=== PATIENT | female | born 1945 | race Caucasian/White ===

== ENCOUNTER 2017-10-22 12:48 | Inpatient (IN) | payer MEDICARE ==
[2017-10-22] VITALS (8 sets, daily range): BP systolic 158–210; BP diastolic 82–110
[~2017-10-22] VITALS: Ht 167.6 cm; Wt 107.6 kg
--- NOTE | ~2017-10-22 | CON ---
[place], [place] REPORT OF CONSULTATION NAME: [facility]GO [facility]: [id number] UNIT #: [id number] ROOM: 407 DOCTOR: ADRIANNA LAGUNAS MD BIRTHDATE: [birth year] DOS: 10/23/2017 CHIEF COMPLAINT: "Oh, I took a bad fall, now I don't know what I'm going to do." HISTORY OF PRESENT ILLNESS: This is a 71-year-old white female who is being followed on the medical floor for elevated blood pressure as well as atrial fibrillation with rapid ventricular response. She also suffered a right patellar fracture. From a psychiatric standpoint, the patient has been found to be somewhat confused, episodically psychotic. This morning, in fact, she thought it was evening; she stated she was hungry and did not have dinner. When she was evaluated by the physician, she also mentioned she saw rats in her room. This morning as I evaluated her, she was fairly accurate in telling me that she has been here for about 3 days, that she is here because she fractured her right kneecap and is unable to walk and is now worried that she will have to go into a rehab facility, but is uncertain. She did not complain of any visual hallucinations, auditory hallucinations and was fairly well oriented; however, she was rather vague at times I think purposely to hide some memory issues. MENTAL STATUS: She is alert and oriented to person, place, very approximate to time. Mood seems fairly euthymic. Affect appropriate. Speech rate and pattern is within normal limits. There is no hypomania or leo. There are no overt auditory or visual hallucinations. No delusions were voiced. No paranoia was present. She at times processes slowly, but overall her memory this morning for me was fairly intact. DIAGNOSIS: Major depression, recurrent, by history. PLAN: I will go ahead and increase her Exelon from 1.5 mg twice a day to 3 mg twice a day at least bringing it into the therapeutic range. There is a linear response to the dose and improvement, so if you wanted to increase further more benefit might be obtained. I will also increase the Cymbalta from 40 mg a day to 60 mg a day to more adequately treat the depression; it will also aid in pain control given her fractured kneecap. Should you require further intervention, please notify me later. I appreciate the consult. ADRIANNA LAGUNAS MD CM:CONSTR:REPORT OF CONSULTATION 0958 10/23/17 2334 interface
[~2017-10-22 12:48] MED LIST: ALBUTEROL INHALER; AMOXICILLIN500 M2 PO; ATENOLOL25 MG PO; ATIVAN1 MG PO; COUMADIN2.5 M1 PO; COUMADIN2.5 MG PO; ELIQUIS5 M1 PO; FLONASE ALLERG9.9 ML NS; FLUONAZOLE150 M1 PO; HYDROCOD-HOMAT1 EACH PO; K-TAB20 MEQ PO; LASIX40 MG PO; LISINOPRIL/HCTZ1 TA2 PO; LISINOPRIL2.5 MG PO; LOVASTATIN20 MG PO; METOPROLOL TART50 M1 PO; MYCOLOG CREAM 115 GM T; POLYETHYLENE GL1 POW PO; PREMARIN V0.625 MG/G VG; TOPROL XL50 M1 PO; WARFARIN SOD5 MG PO; WARFARIN SODIU2.5 MG PO; XARE20MG PO; ZYRTEC10 MG PO
[2017-10-22] MEDS ORDERED: DULOXETINE HCL40 MG PO (13:00)
[2017-10-22] MEDS ORDERED: XARE20MG PO (13:00)
[2017-10-22] MEDS ORDERED: ATIVAN1 MG PO (13:02)
[2017-10-22] MEDS ORDERED: RIVASTIGMINE T1.5 M1 PO (13:02)
[2017-10-22] MEDS ORDERED: LISINOPRIL20 MG PO (13:03)
[2017-10-22] MEDS ORDERED: TOPROL XL100 MG PO (13:03)
[2017-10-22 14:57] LABS: BASO # 0.1 10*3/uL (0.0-0.1); BASO % 0.6 % (0.0-1.0); EOS % 0.4 % (1.0-4.0); HEMATOCRIT 48.8 % (37.0-47.0); HEMOGLOBIN 16.3 g/dl (12.0-16.0); LYMPH # 2.1 10*3/uL (1.3-4.4); LYMPH % 20.8 % (27.0-41.0); MEAN CELL VOLUME 88.1 fl (81.0-99.0); MEAN CORPUSCULAR HGB 29.4 pg (27.0-31.0); MEAN CORPUSCULAR HGB CONC 33.4 g/dl (33.0-37.0); MEAN PLATELET VOLUME 10.5 fl (9.6-12.3); MONO # 0.6 10*3/uL (0.1-1.0); MONO % 6.2 % (3.0-9.0); NEUT # 7.2 10*3/uL (2.3-7.9); NEUT % 71.8 % (47.0-73.0); PLATELET COUNT AUTOMATED 166 10*3/uL (130-400); RED BLOOD COUNT 5.54 10*6/uL (4.10-5.10)
[2017-10-22 15:11] LABS: ACT PARTIAL THROMBO TIME 32.8 SECONDS (20.8-31.5); INTERNATIONAL NORM RATIO 1.3 (2.0-3.5)
[2017-10-22 15:16] LABS: ALBUMIN 4.2 gm/dl (3.1-4.5); ALKALINE PHOSPHATASE 50 U/L (45-117); BUN 15 mg/dl (7-24); CHLORIDE 103 mmol/L (98-107); CREATININE 0.95 mg/dL (0.55-1.02); POTASSIUM 4.3 mmol/L (3.5-5.1); SGOT/AST 28 IU/L (3-35); SGPT/ALT 35 U/L (12-78); SODIUM 139 mmol/L (136-145); TOTAL PROTEIN 6.6 gm/dL (6.4-8.2)
[2017-10-23] VITALS (11 sets, daily range): BP systolic 122–172; BP diastolic 76–102
[2017-10-23 06:34] LABS: BASO # 0.1 10*3/uL (0.0-0.1); BASO % 0.6 % (0.0-1.0); EOS # 0.1 10*3/uL (0.0-0.4); EOS % 1.4 % (1.0-4.0); HEMATOCRIT 45.1 % (37.0-47.0); LYMPH % 23.5 % (27.0-41.0); MEAN CELL VOLUME 89.5 fl (81.0-99.0); MEAN CORPUSCULAR HGB 29.8 pg (27.0-31.0); MEAN CORPUSCULAR HGB CONC 33.3 g/dl (33.0-37.0); MEAN PLATELET VOLUME 10.7 fl (9.6-12.3); MONO # 0.7 10*3/uL (0.1-1.0); MONO % 7.5 % (3.0-9.0); NEUT # 5.7 10*3/uL (2.3-7.9); NEUT % 66.5 % (47.0-73.0); PLATELET COUNT AUTOMATED 163 10*3/uL (130-400); RED BLOOD COUNT 5.04 10*6/uL (4.10-5.10); RED CELL DISTRI WIDTH 13.2 % (0-14.5); WHITE BLOOD COUNT 8.6 10*3/uL (4.8-10.8)
[2017-10-23 07:07] LABS: ALBUMIN 3.6 gm/dl (3.1-4.5); ALKALINE PHOSPHATASE 45 U/L (45-117); BUN 12 mg/dl (7-24); CHLORIDE 102 mmol/L (98-107); CHOLESTEROL 156 mg/dL (<200); CREATININE 0.92 mg/dL (0.55-1.02); FREE T4 1.39 ng/dl (0.76-1.46); HDL CHOLESTEROL 54 mg/dl (40-60); LDL CHOLESTEROL 86 mg/dL (9-159); PHOSPHOROUS 2.8 mg/dL (2.5-4.9); POTASSIUM 4.1 mmol/L (3.5-5.1); SGOT/AST 28 IU/L (3-35); SGPT/ALT 31 U/L (12-78); SODIUM 139 mmol/L (136-145); TOTAL PROTEIN 5.9 gm/dL (6.4-8.2); TRIGLYCERIDES 78 mg/dl (<150); VLDL CHOLESTEROL 16 mg/dL (6-40)
[2017-10-24] VITALS: BP 150/84
[2017-10-24 04:00] VITALS: BP 160/100
[2017-10-24 08:00] VITALS: BP 153/100
[2017-10-24 12:00] VITALS: BP 156/99
[2017-10-24 16:00] VITALS: BP 145/90
[2017-10-24 20:00] VITALS: BP 123/88
[2017-10-25] VITALS: BP 146/90
[2017-10-25 08:00] VITALS: BP 170/98
[2017-10-25 12:00] VITALS: BP 157/102
[2017-10-25 16:19] VITALS: BP 132/77
[2017-10-25 20:00] VITALS: BP 175/89
[2017-10-26] VITALS: BP 166/96
[2017-10-26 08:00] VITALS: BP 158/98
[2017-10-26 12:00] VITALS: BP 148/100
[2017-10-26 16:00] VITALS: BP 141/95
[2017-10-26 20:00] VITALS: BP 122/80
[2017-10-27] VITALS: BP 140/86
[2017-10-27 08:00] VITALS: BP 149/97
[2017-10-27 10:19] LABS: BASO # 0.1 10*3/uL (0.0-0.1); BASO % 0.7 % (0.0-1.0); EOS # 0.4 10*3/uL (0.0-0.4); EOS % 3.5 % (1.0-4.0); HEMOGLOBIN 16.5 g/dl (12.0-16.0); LYMPH # 2.3 10*3/uL (1.3-4.4); LYMPH % 21.9 % (27.0-41.0); MEAN CELL VOLUME 87.7 fl (81.0-99.0); MEAN CORPUSCULAR HGB 29.5 pg (27.0-31.0); MEAN CORPUSCULAR HGB CONC 33.7 g/dl (33.0-37.0); MEAN PLATELET VOLUME 10.3 fl (9.6-12.3); MONO # 0.9 10*3/uL (0.1-1.0); NEUT % 65.6 % (47.0-73.0); PLATELET COUNT AUTOMATED 183 10*3/uL (130-400); RED BLOOD COUNT 5.59 10*6/uL (4.10-5.10); RED CELL DISTRI WIDTH 12.9 % (0-14.5); WHITE BLOOD COUNT 10.6 10*3/uL (4.8-10.8)
[2017-10-27 12:00] VITALS: BP 116/70
[2017-10-27 16:00] VITALS: BP 115/89
[2017-10-27 20:00] VITALS: BP 123/86
[2017-10-28] VITALS: BP 120/82
[2017-10-28 06:57] LABS: BASO # 0.1 10*3/uL (0.0-0.1); BASO % 0.8 % (0.0-1.0); EOS # 0.3 10*3/uL (0.0-0.4); HEMATOCRIT 48.9 % (37.0-47.0); HEMOGLOBIN 16.2 g/dl (12.0-16.0); LYMPH # 2.4 10*3/uL (1.3-4.4); LYMPH % 23.5 % (27.0-41.0); MEAN CELL VOLUME 88.3 fl (81.0-99.0); MEAN CORPUSCULAR HGB 29.2 pg (27.0-31.0); MEAN CORPUSCULAR HGB CONC 33.1 g/dl (33.0-37.0); MEAN PLATELET VOLUME 11.3 fl (9.6-12.3); MONO % 9.6 % (3.0-9.0); NEUT # 6.5 10*3/uL (2.3-7.9); NEUT % 62.9 % (47.0-73.0); PLATELET COUNT AUTOMATED 185 10*3/uL (130-400); RED BLOOD COUNT 5.54 10*6/uL (4.10-5.10); RED CELL DISTRI WIDTH 12.7 % (0-14.5); WHITE BLOOD COUNT 10.3 10*3/uL (4.8-10.8)
[2017-10-28 08:00] VITALS: BP 126/84
[2017-10-28 12:00] VITALS: BP 133/76
[2017-10-28 16:00] VITALS: BP 133/88
[2017-10-28 20:00] VITALS: BP 132/72
[2017-10-29] VITALS: BP 138/81
[2017-10-29 08:00] VITALS: BP 130/86
[2017-10-29 12:00] VITALS: BP 111/90
[2017-10-29 12:33] VITALS: BP 102/58
[2017-10-29] MEDS ORDERED: VITAMIN D31000 UNI1 PO (12:37)
[2017-10-29] MEDS ORDERED: RIVASTIGMINE TAR3 M1 PO (12:37)
[2017-10-29] MEDS ORDERED: HYDR25T PO (12:37)
[2017-10-29] MEDS ORDERED: DULOXETINE HCL60 MG PO (12:37)
[2017-10-29] MEDS ORDERED: AMLODIPINE BESYL5 MG PO (12:37)
[2017-10-29] MEDS ORDERED: NYSTOP60 GM T (12:37)
[2017-10-29] MEDS ORDERED: LISINOPRIL20 MG PO (12:37)
[2017-10-29] MEDS ORDERED: METOPROLOL SUC100 M1 PO (13:29)
== END 2017-10-29 14:10 | disposition other institution (70) | DRG 537 ==
LOC: ED 12:48 → 4E 14:44 → EDHOLD 14:44 → 4E 15:18
PROVIDERS: Family Medicine; Internal Medicine Hospice and Palliative Medicine; Nurse Practitioner; Registered Nurse
PROC: 2W3QXYZ Immobilization of Right Lower Leg using Other Device (ICD-10-PCS; principal; 2017-10-23)
DX: S76.111A Strain of right quadriceps muscle, fascia and tendon, initial encounter (principal); D68.59 Other primary thrombophilia; I48.2 Chronic atrial fibrillation; E66.01 Morbid (severe) obesity due to excess calories; I50.42 Chronic combined systolic (congestive) and diastolic (congestive) heart failure; I11.0 Hypertensive heart disease with heart failure; B37.2 Candidiasis of skin and nail; E55.9 Vitamin D deficiency, unspecified; S82.001A Unspecified fracture of right patella, initial encounter for closed fracture; I16.1 Hypertensive emergency; Z68.33 Body mass index [BMI] 33.0-33.9, adult; E78.00 Pure hypercholesterolemia, unspecified; J44.9 Chronic obstructive pulmonary disease, unspecified; M25.461 Effusion, right knee; M25.561 Pain in right knee; F41.9 Anxiety disorder, unspecified; Z96.642 Presence of left artificial hip joint; F02.80 Dementia in other diseases classified elsewhere, unspecified severity, without behavioral disturbance, psychotic disturbance, mood disturbance, and anxiety; F32.9 Major depressive disorder, single episode, unspecified; X58.XXXA Exposure to other specified factors, initial encounter; G30.9 Alzheimer's disease, unspecified; I25.10 Atherosclerotic heart disease of native coronary artery without angina pectoris; W06.XXXA Fall from bed, initial encounter; Y93.84 Activity, sleeping; Y92.092 Bedroom in other non-institutional residence as the place of occurrence of the external cause; Y99.8 Other external cause status; Z90.49 Acquired absence of other specified parts of digestive tract; I25.2 Old myocardial infarction; Z90.710 Acquired absence of both cervix and uterus; Z83.3 Family history of diabetes mellitus; Z82.49 Family history of ischemic heart disease and other diseases of the circulatory system; Z79.899 Other long term (current) drug therapy; Z88.5 Allergy status to narcotic agent; Z91.041 Radiographic dye allergy status

== ENCOUNTER → 2017-11-30 | Outpatient (CLI) | payer MEDICARE ==
[~2017-11-30] MED LIST changes: +AMLODIPINE BESYL5 MG PO; +DULOXETINE HCL40 MG PO; +DULOXETINE HCL60 MG PO; +HYDR25T PO; +LISINOPRIL20 MG PO; +METOPROLOL SUC100 M1 PO; +NYSTOP60 GM T; +RIVASTIGMINE T1.5 M1 PO; +RIVASTIGMINE TAR3 M1 PO; +TOPROL XL100 MG PO; +VITAMIN D31000 UNI1 PO
== END | disposition home or self-care (01) ==
LOC: ORTHO 02:30
DX: S82.001D Unspecified fracture of right patella, subsequent encounter for closed fracture with routine healing (principal); X58.XXXD Exposure to other specified factors, subsequent encounter

== ENCOUNTER 2017-12-23 11:31 | Emergency (ER) | payer MEDICARE ==
[~2017-12-23] VITALS: Ht 165.1 cm; Wt 90.7 kg
[2017-12-23 11:34] VITALS: BP 111/59
[2017-12-23] MEDS ORDERED: NAMENDA-5 PO (12:25)
[2017-12-23] MEDS ORDERED: ATIVAN1 MG PO (12:25)
[2017-12-23] MEDS ORDERED: DULOXETINE HCL20 MG PO (12:26)
[2017-12-23] MEDS ORDERED: RIVASTIGMINE T1.5 M1 PO (12:27)
[2017-12-23] MEDS ORDERED: KLOR-CON M2020 ME1 PO (12:28)
== END 2017-12-23 13:41 | disposition home or self-care (01) ==
LOC: ED 11:31
DX: S09.90XA Unspecified injury of head, initial encounter (principal); Z79.899 Other long term (current) drug therapy; Z88.1 Allergy status to other antibiotic agents; W01.0XXA Fall on same level from slipping, tripping and stumbling without subsequent striking against object, initial encounter; Y93.89 Activity, other specified; Y92.89 Other specified places as the place of occurrence of the external cause; Y99.8 Other external cause status

== ENCOUNTER → 2017-12-30 | Outpatient (CLI) | payer MEDICARE ==
[~2017-12-30] MED LIST changes: +DULOXETINE HCL20 MG PO; +KLOR-CON M2020 ME1 PO; +NAMENDA-5 PO
== END | disposition home or self-care (01) ==
LOC: ORTHO 00:37
DX: S82.001D Unspecified fracture of right patella, subsequent encounter for closed fracture with routine healing (principal); S76.111D Strain of right quadriceps muscle, fascia and tendon, subsequent encounter; X58.XXXD Exposure to other specified factors, subsequent encounter

== ENCOUNTER 2018-01-13 16:09 | Inpatient (IN) | payer MEDICARE ==
[~2018-01-13] VITALS: Wt 108.1 kg
--- NOTE | ~2018-01-13 | CON ---
[place], [place] REPORT OF CONSULTATION NAME: ERICKA TARANGO UNIT #: [id number] ROOM: 409 DOCTOR: ADRIANNA LAGUNAS MD BIRTHDATE: [birth year] DOS: 01/15/2018 PSYCHIATRIC CONSULTATION CHIEF COMPLAINT: "I haven't been feeling well, I have been very depressed." HISTORY OF PRESENT ILLNESS: This is a 72-year-old white female admitted now to the [facility] due to altered mental status and worsening confusion. The patient has a history of Alzheimer's dementia and according to the daughter she is becoming increasingly more confused. She is waking up in the middle of the night and attempting to get up and wandering. She most recently had been admitted due to a bout of hypertension, AFib with rapid ventricular response, ruptured right quadriceps tendon tear and a fractured patella and sent to [facility] for rehab. The patient then returned to be at home, living with her . The patient has been increasingly depressed with poor sleep and appetite, anergia, anhedonia, hopeless, helpless feelings, crying spells and inability to cope. Daughter is concerned for her mom's safety, stating that she does get up in the middle of the night and does wonder somewhat around the house. PAST MEDICAL HISTORY: Remarkable for a plethora of medical issues. MENTAL STATUS: The patient is alert and oriented to person, place, but not time. Mood seems depressed. Affect is flat, blunted with a constricted range. There is no leo or hypomania. There are no overt auditory or visual hallucinations. No delusions, no paranoia. Short term memory is poor. DIAGNOSES: Major depression, recurrent, severe and Alzheimer's dementia. PLAN: I will discontinue the Restoril, avoid in the elderly, discontinue the Cymbalta in lieu of Remeron 15 mg at bedtime, which should dramatically improve sleep. I will increase Namenda from 10 mg a day to 15 mg a day with a target of 20 mg a day in mind and augment with Exelon patch 4.6 mg a day. I have discussed this case with the daughter and I do believe the patient would benefit from a stay on the [facility] to determine whether or not she is safe to return home or requires jail intervention. We will discuss this case then with the hospitalist to determine when she is medically stable, if this is an option. ADRIANNA LAGUNAS MD CM:CONSTR:REPORT OF CONSULTATION 1011 01/15/18 1021 interface
[2018-01-13 16:10] VITALS: BP 90/71
[2018-01-13 17:18] LABS: BASO # 0.1 10*3/uL (0.0-0.1); BASO % 0.6 % (0.0-1.0); EOS # 0.1 10*3/uL (0.0-0.4); EOS % 1.2 % (1.0-4.0); HEMATOCRIT 46.3 % (37.0-47.0); HEMOGLOBIN 14.7 g/dl (12.0-16.0); LYMPH # 2.8 10*3/uL (1.3-4.4); LYMPH % 27.8 % (27.0-41.0); MEAN CELL VOLUME 90.4 fl (81.0-99.0); MEAN CORPUSCULAR HGB 28.7 pg (27.0-31.0); MEAN CORPUSCULAR HGB CONC 31.7 g/dl (33.0-37.0); MEAN PLATELET VOLUME 10.2 fl (9.6-12.3); MONO # 0.9 10*3/uL (0.1-1.0); NEUT # 6.2 10*3/uL (2.3-7.9); PLATELET COUNT AUTOMATED 307 10*3/uL (130-400); RED BLOOD COUNT 5.12 10*6/uL (4.10-5.10); RED CELL DISTRI WIDTH 12.5 % (0-14.5); WHITE BLOOD COUNT 10.2 10*3/uL (4.8-10.8)
[2018-01-13 17:27] LABS: ACT PARTIAL THROMBO TIME 29.4 SECONDS (20.8-31.5); INTERNATIONAL NORM RATIO 1.1 (2.0-3.5)
[2018-01-13 17:33] LABS: ALBUMIN 1.8 gm/dl (3.1-4.5); ALKALINE PHOSPHATASE 86 U/L (45-117); BUN 23 mg/dl (7-24); CHLORIDE 102 mmol/L (98-107); CREATININE 1.01 mg/dL (0.55-1.02); LIPASE 119 U/L (73-393); POTASSIUM 4.1 mmol/L (3.5-5.1); SGOT/AST 24 IU/L (3-35); SGPT/ALT 20 U/L (12-78); SODIUM 139 mmol/L (136-145); TOTAL PROTEIN 5.5 gm/dL (6.4-8.2)
[2018-01-13 17:35] LABS: BILIRUBIN NEGATIVE (NEGATIVE); BLOOD 2+ (NEGATIVE); CLARITY SL CLOUDY (CLEAR); COLOR YELLOW (YELLOW); GLUCOSE NEGATIVE (NEGATIVE); KETONE NEGATIVE (NEGATIVE); LEUKO ESTERASE NEGATIVE (NEGATIVE); NITRITE NEGATIVE (NEGATIVE); PH 5.5 (5.0-9.0); SPECIFIC GRAVITY 1.025 (1.005-1.030); UROBILINOGEN 0.2 E.U./dl (0.2-1.0)
[2018-01-13 17:36] LABS: TROPONIN I < 0.015 ng/ml (<0.045)
[2018-01-13 17:52] LABS: BACTERIA 3+
[2018-01-13 18:00] LABS: EPITHELIAL CELLS 16-20; MUCOUS 1+; RBC 21-30 rbc/hpf (0-2)
[2018-01-13 20:00] VITALS: BP 99/69
[2018-01-13 20:56] VITALS: BP 100/78
[2018-01-13 21:33] VITALS: BP 100/78
[2018-01-13] MEDS ORDERED: VITAMIN D31000 UNI1 PO (22:25)
[2018-01-14] VITALS: BP 103/74
[2018-01-14] MEDS ORDERED: RIVASTIGMINE TAR3 M1 PO (02:57)
[2018-01-14 04:00] VITALS: BP 110/70
[2018-01-14 06:13] LABS: BASO # 0.1 10*3/uL (0.0-0.1); BASO % 0.6 % (0.0-1.0); EOS # 0.2 10*3/uL (0.0-0.4); EOS % 1.6 % (1.0-4.0); HEMATOCRIT 44.4 % (37.0-47.0); HEMOGLOBIN 14.2 g/dl (12.0-16.0); LYMPH # 2.7 10*3/uL (1.3-4.4); MEAN CELL VOLUME 90.4 fl (81.0-99.0); MEAN CORPUSCULAR HGB 28.9 pg (27.0-31.0); MEAN PLATELET VOLUME 9.9 fl (9.6-12.3); MONO # 0.8 10*3/uL (0.1-1.0); MONO % 7.9 % (3.0-9.0); NEUT # 5.8 10*3/uL (2.3-7.9); NEUT % 61.6 % (47.0-73.0); PLATELET COUNT AUTOMATED 271 10*3/uL (130-400); RED BLOOD COUNT 4.91 10*6/uL (4.10-5.10); RED CELL DISTRI WIDTH 12.5 % (0-14.5); WHITE BLOOD COUNT 9.5 10*3/uL (4.8-10.8)
[2018-01-14 06:30] LABS: ALBUMIN 1.6 gm/dl (3.1-4.5); BUN 22 mg/dl (7-24); CHLORIDE 103 mmol/L (98-107); CREATININE 1.01 mg/dL (0.55-1.02); PHOSPHOROUS 2.6 mg/dL (2.5-4.9); POTASSIUM 3.6 mmol/L (3.5-5.1); SGOT/AST 24 IU/L (3-35); SGPT/ALT 20 U/L (12-78); SODIUM 138 mmol/L (136-145); TOTAL PROTEIN 5.2 gm/dL (6.4-8.2)
[2018-01-14 06:38] LABS: ALKALINE PHOSPHATASE 87 U/L (45-117)
[2018-01-14 07:58] LABS: VITAMIN D, 25-HYDROXY 20.2 ng/mL (30-100)
[2018-01-14 08:00] VITALS: BP 113/74
[2018-01-14 16:00] VITALS: BP 110/53
[2018-01-14 20:00] VITALS: BP 104/62; BP 97/56
[2018-01-15] VITALS: BP 101/67
[2018-01-15 06:24] LABS: BASO # 0.1 10*3/uL (0.0-0.1); BASO % 0.8 % (0.0-1.0); EOS # 0.2 10*3/uL (0.0-0.4); EOS % 2.1 % (1.0-4.0); HEMATOCRIT 42.5 % (37.0-47.0); HEMOGLOBIN 13.6 g/dl (12.0-16.0); LYMPH # 2.9 10*3/uL (1.3-4.4); LYMPH % 32.1 % (27.0-41.0); MEAN CELL VOLUME 89.9 fl (81.0-99.0); MEAN CORPUSCULAR HGB 28.8 pg (27.0-31.0); MEAN PLATELET VOLUME 10.3 fl (9.6-12.3); MONO # 0.9 10*3/uL (0.1-1.0); MONO % 10.1 % (3.0-9.0); NEUT % 54.6 % (47.0-73.0); PLATELET COUNT AUTOMATED 259 10*3/uL (130-400); RED BLOOD COUNT 4.73 10*6/uL (4.10-5.10); RED CELL DISTRI WIDTH 12.5 % (0-14.5); WHITE BLOOD COUNT 9.1 10*3/uL (4.8-10.8)
[2018-01-15 06:47] LABS: BUN 17 mg/dl (7-24); CHLORIDE 104 mmol/L (98-107); CREATININE 0.81 mg/dL (0.55-1.02); POTASSIUM 3.7 mmol/L (3.5-5.1); SODIUM 140 mmol/L (136-145)
[2018-01-15 08:00] VITALS: BP 122/76
[2018-01-15] MEDS ORDERED: MEMANTINE HCL10 MG PO (13:46)
[2018-01-15] MEDS ORDERED: NYSTOP60 GM T (13:46)
[2018-01-15] MEDS ORDERED: NAMENDA-5 PO (13:46)
[2018-01-15] MEDS ORDERED: RIVASTIGMINE1 EACH T (13:46)
[2018-01-15] MEDS ORDERED: MIRTAZAPINE15 M2 PO (13:46)
[2018-01-15 16:00] VITALS: BP 105/58
== END 2018-01-15 18:08 | disposition home health service (06) | DRG 70 ==
LOC: ED 16:09 → EDHOLD 18:16 → 4E 18:16
PROVIDERS: Emergency Medicine; Internal Medicine; Internal Medicine Nephrology
DX: G93.41 Metabolic encephalopathy (principal); E43 Unspecified severe protein-calorie malnutrition; I48.2 Chronic atrial fibrillation; I50.42 Chronic combined systolic (congestive) and diastolic (congestive) heart failure; F02.81 Dementia in other diseases classified elsewhere, unspecified severity, with behavioral disturbance; I11.0 Hypertensive heart disease with heart failure; J44.9 Chronic obstructive pulmonary disease, unspecified; G30.9 Alzheimer's disease, unspecified; F33.2 Major depressive disorder, recurrent severe without psychotic features; Z68.42 Body mass index [BMI] 45.0-49.9, adult; R82.71 Bacteriuria; E86.0 Dehydration; E66.01 Morbid (severe) obesity due to excess calories; I25.10 Atherosclerotic heart disease of native coronary artery without angina pectoris; R80.9 Proteinuria, unspecified; R31.9 Hematuria, unspecified; E55.9 Vitamin D deficiency, unspecified; R26.81 Unsteadiness on feet; E78.00 Pure hypercholesterolemia, unspecified; Z96.642 Presence of left artificial hip joint; Z90.89 Acquired absence of other organs; Z90.49 Acquired absence of other specified parts of digestive tract; I25.2 Old myocardial infarction; Z90.710 Acquired absence of both cervix and uterus; Z82.49 Family history of ischemic heart disease and other diseases of the circulatory system; Z84.89 Family history of other specified conditions; Z88.8 Allergy status to other drugs, medicaments and biological substances; Z91.041 Radiographic dye allergy status; Z79.899 Other long term (current) drug therapy; Z91.81 History of falling; Z98.61 Coronary angioplasty status

== ENCOUNTER 2018-01-15 18:17 | Inpatient (IN) | payer MEDICARE ==
[~2018-01-15] VITALS: Ht 152.4 cm; Wt 105.2 kg
--- NOTE | ~2018-01-15 | WRIGHTHP ---
[place], [place] PATIENT HISTORY AND PHYSICAL EXAM NAME: ERICKA TARANGO [facility] #: [id number] UNIT #: [id number] ROOM: 317 DOCTOR: ADRIANNA LAGUNAS MD BIRTHDATE: [birth year] DOS: 01/16/2018 INITIAL PSYCHIATRIC EVALUATION CHIEF COMPLAINT: "I guess I have been depressed." HISTORY OF PRESENT ILLNESS: This is a 72-year-old white female who was initially admitted to the hospital due to atrial fibrillation with rapid ventricular response as well as partial right quadriceps tendon tear. The patient was found to be very depressed and confused while she was on the medical floor and I was consulted to see the patient. The patient did endorse multiple neurovegetative symptoms that included poor sleep with difficulty falling asleep, early head start teacher awakening, poor appetite, lack of desire. Additionally, the patient's daughter reports that the patient is very confused and has been much more forgetful. She also verbalizes fear that the patient does have a tendency to wake up in the middle of the night while her is sleeping and wander the house and she is fearful that something bad will happen because of this behavior. The patient is admitted now to rule out organic factors to stabilize on medication and to determine the least restrictive environment for her to be placed. PAST MEDICAL HISTORY: Remarkable for Alzheimer's dementia, coronary artery disease, chronic AFib, congestive heart failure, COPD, hypertension, hyperlipidemia, protein-calorie malnutrition, morbid obesity, vitamin D deficiency. MENTAL STATUS: The patient is alert and oriented to person, place, but not time. Mood does seem to be depressed. Affect is flat, blunted with a constricted range. There is no leo or hypomania. There are no psychotic symptoms. Short-term memory is exceedingly poor. DIAGNOSIS: Major depression, recurrent, severe Alzheimer dementia. PLAN: I have already started her on Remeron in lieu of the Cymbalta. This should help sleep and appetite improved dramatically. I have maintained her on Namenda and added Exelon patch 4.6, which I will increase to 9.5. Of note, the patient did exactly what the daughter reports that she has been doing at home, which is wake up multiple times in the middle of the night and attempt to wander in the halls. Nurses had to redirect her back to her room on multiple occasions, I am fearful that if this behavior is occurring at home when family members are sleeping. She could potentially harm herself or harm the household by setting the house on fire or leaving the house in the middle of the night and have a bad ending because of it. We will continue to monitor. I will have Dr. Vidal Willoughby to evaluate her on Thursday to determine his feeling regarding competency. My sense at this point in time as we need to proceed with at least a 30-day rehab stay to further assess her ability to live independently. [place], [place] PATIENT HISTORY AND PHYSICAL EXAM NAME: ERICKA TARANGO UNIT #: [id number] ROOM: [facility] DOCTOR: ADRIANNA LAGUNAS MD BIRTHDATE: [birth year] ADRIANNA LAGUNAS MD CM:HISPHYS:PATIENT HISTORY AND PHYSICAL EXAMINATION 8 1 ADRIANNA LAGUNAS MD 01/16/18911 interface
--- NOTE | ~2018-01-15 | PR ---
[place], [place] PROGRESS NOTE NAME: [facility]GO [id number] UNIT #: [id number] ROOM: 317 DOCTOR: ALYX JAY DO BIRTHDATE: [birth year] DOS: 01/19/2018 CHIEF COMPLAINT: " help, get me out of this Sheri chair." SUMMARY OF THE VISIT: The patient was interviewed in the dining area as she had been moved last night to a Sheri chair while awake for yelling and behaviors. Per nursing, she continues to have sundowning events in the evening with worsening mood, with concerns for her safety. She states she did not sleep here, has not been able to eat table taken off. States that nobody has been able to come and visit her. She is very difficult to redirect and almost to the point of being combative with staff. MENTAL STATUS: She is alert and oriented to person, place but not time. Her memory has significant gaps. Her affect is constricted and blunted. There is no hypomania or leo, auditory or visual hallucinations. PLAN: We will increase her Depakote to 500 mg t.i.d. and monitor to maximize potential benefit, to decrease her impulsivity and mood liability. We will continue to engage her in individual and group activities with the plan to return to the least restrictive environment when stable. ALYX JAY DO ADRIANNA LAGUNAS MD CM:PNTRANS [id number] ALYX JAY DO 01/19/182231 interface
--- NOTE | ~2018-01-15 | CON ---
[place], [place] REPORT OF CONSULTATION NAME: ERICKA TARANGO [facility] #: [id number] UNIT #: [id number] ROOM: 317 DOCTOR: LENNY GATES ED.D (MCKENZIE) BIRTHDATE: [birth year] DOS: 01/19/2018 HISTORY OF PRESENT ILLNESS: The patient a 72-year-old female referred by Dr. Lagunas for competency evaluation. At the present time, she is on the senior behavioral health unit at [facility]. She is and has 4 children. She has recently been living with her . She states that she one time worked at [employer] here in [place]. MEDICAL HISTORY: Pertinent for dementia, CHF, COPD, hypertension, morbid obesity, and vitamin D deficiency. MEDICATIONS: Include Remeron, Ativan, Exelon, Depakote, Namenda, metoprolol, hydrochlorothiazide and lisinopril. SOCIAL HISTORY: She states she rarely drinks alcoholic beverages and does not smoke cigarettes. PHYSICAL EXAMINATION: The patient was awake, alert and oriented to person only. She has no idea where she was. She has no idea of the year, but she did not know Enrique Maldonado is the president. Her short and long-term memory are markedly impaired. Her insight, judgment and concentration are also very poor. In my opinion, this patient is not competent to make informed healthcare decisions. I did complete all guardianship paperwork for this patient. DIAGNOSES: Major neurocognitive disorder -- Alzheimer's disease. RECOMMENDATIONS: In my opinion, this patient needs a guardian or durable power of admitted attorneys for healthcare. Thank you very much for this consult. LENNY GATES ED.D CM:CONSTR:REPORT OF CONSULTATION 1534 01/19/18 2304 interface ADRIANNA LAGUNAS MD
--- NOTE | ~2018-01-15 | DS ---
[place], [place] DISCHARGE SUMMARY NAME: ERICKA TARANGO [facility] #: [id number] UNIT #: [id number] ROOM: 317 DOCTOR: ADRIANNA LAGUNAS MD BIRTHDATE: [birth year] DOS: 01/20/2018 CHIEF COMPLAINT: "I guess I have been depressed." HISTORY OF PRESENT ILLNESS: This is a 72-year-old white female who was initially admitted to the medical floor at [facility] due to atrial fibrillation with rapid ventricular response as well as a partial right quadriceps tendon tear. The patient did divulge at that time that she had been feeling increasingly depressed as well as being somewhat confused. The patient did endorse multiple neurovegetative symptoms at that time including poor sleep with difficulty falling asleep, cooker sulfite awakening, poor appetite, lack of desire and motivation. Additionally, the patient's daughter reported that the patient has been increasingly more confused. This has been ongoing for months, worse in the last several weeks. The patient's daughter did state that she has a tendency to stay in bed for most of the day, but then wakes up repeatedly throughout the night and wonders through the house while the patient's is sleeping. Daughter is very fearful that something bad will happen to her mother because of this wandering behavior. Because of the depression and the confusion, it was felt that the patient did warrant further evaluation and treatment and she was sent then to the [facility] to rule out any further organic factors, to stabilize on medication, to engage in individual and drake milieu activity and then determine the least restrictive environment post-discharge. PAST MEDICAL HISTORY: Remarkable for Alzheimer's dementia, coronary artery disease, chronic AFib, congestive heart failure, COPD, hypertension, hyperlipidemia, protein calorie malnutrition, morbid obesity, and vitamin D deficiency. SUMMARY OF HOSPITAL COURSE: The patient was admitted to the [facility]. She had already had her Cymbalta discontinued in lieu of Remeron 15 mg at bedtime while on the medical unit. I had also started her on Exelon patch 4.6 mg while she was on the medical unit, this was gradually increased to 9.5 and ultimately stabilized at 13.3 mg daily. This was augmented with Namenda and the dose of the Namenda was rapidly brought up to its maximum dose of 10 mg b.i.d. To decrease her significant mood lability and sundowning, she was started on Depakote 500 mg 3 times a day, which did seem to lessen her mood lability. Of note, the patient did sundown horribly she was somewhat mildly irritable and agitated during the day, this exacerbated in to the late afternoon or early evening. Staff noted that she frequently woke up and it was very difficult to redirect her back to bed. She often times would state that she needed to get on the bus. 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 It would be very difficult for staff to redirect her, but with much prompting and often with the use of PRNs, they were able to settle her down. Because of the significant sundowning and nighttime behavior, it was determined that she should be placed in a long-term care facility. Dr. Vidal Willoughby, psychologist, was consulted due to competency and felt that she was incompetent to make decisions and believed at this point in time that family should seek guardianship. The patient had improved sufficiently with the current medication regimen that a long-term care placement was sought. The patient was then discharged back to [place], [place] DISCHARGE SUMMARY NAME: ERICKA TARANGO UNIT #: [id number] ROOM: 317 DOCTOR: ADRIANNA LAGUNAS MD BIRTHDATE: [birth year] the community in to a long-term care facility for at least a 30-day rehab stay if not for permanent placement. MENTAL STATUS AT DISCHARGE: The patient is alert and oriented to person, possibly place in that she knows she is in the hospital. She is not oriented to time. Mood does seem to be somewhat labile. She does redirect much better, especially in the cooker sulfite. There is no symptom suggestive of hypomania or leo. There are no overt auditory or visual hallucinations. She is confused and somewhat delusional in that she believes she is still a drug abuse counselor. Short term memory remains significantly altered. FINAL DIAGNOSES UPON DISCHARGE: Major depression, recurrent, and Alzheimer's dementia. PLAN: The patient is to be discharged to a long-term care facility in the [place] of [place]. Prescriptions have been printed and will be sent with her. I will follow her upon her admission to this long-term care facility. Medically and psychiatrically, she is stable. Her biopsychosocial needs will be met by the long-term care facility as well as intervention by her family. ADRIANNA LAGUNAS MD CM:JONAS [id number] ADRIANNA LAGUNAS MD 01/20/18 0947 interface
--- NOTE | ~2018-01-15 | PR ---
[place], [place] PROGRESS NOTE [id number] UNIT #: [id number] ROOM: 317 DOCTOR: ADRIANNA LAGUNAS MD BIRTHDATE: [birth year] DOS: 01/17/2018 CHIEF COMPLAINT: "Happy Easter to you." SUMMARY OF THE VISIT: The patient was interviewed as she was in her room resting. She was waiting to get assistance to get up, so that she can go have breakfast. She was bright and pleasant. She was rather inquisitive as far as when she would be going home, but was pleasantly so. Nurses report that she does sundown horribly and that last evening she became verbally and physically combative and exit seeking. It was very hard for them to redirect her. This behavior is problematic should she go home and I fear that this is going to necessitate her being placed at least temporarily into a long-term care facility to see if her nighttime behavior improves. MENTAL STATUS: She is alert and oriented to self, place, not necessarily time. Mood does seem to be more euthymic this morning. This is not necessarily the case per the nurse's report in the evening. There is no leo or hypomania. There are no overt auditory or visual hallucinations. No delusions, no paranoia. Short term memory has got gaps. PLAN: I will increase her Namenda to its maximum dose of 10 mg b.i.d., augmenting the effectiveness of the Exelon. Vitamin D level was low at 22.3. I will discontinue her daily vitamin D in lieu of vitamin D 50,000 International Units every week. I will start her on very low dose Depakote of 125 mg in the morning and 250 mg in the p.m. hours to see if we could head off some of this mood lability and impulsivity, making it safer for her and others. We will engage her in individual and drake milieu activity, returning to the least restrictive environment when psychiatrically stable. ADRIANNA LAGUNAS MD CM:PNTRANS [phone] ADRIANNA LAGUNAS MD 01/17/18 105 interface
--- NOTE | ~2018-01-15 | PR ---
[place], [place] PROGRESS NOTE NAME: [facility] [id number] UNIT #: [id number] ROOM: 317 DOCTOR: ADRIANNA LAGUNAS MD BIRTHDATE: [birth year] DOS: 01/18/2018 CHIEF COMPLAINT: "Hey, where is my clothes that were over here." SUMMARY OF THE VISIT: The patient was interviewed in the dining area. She was very upset that the clothes that she supposedly place there had been removed. In reality, I have been there for some time and there was never any clothes in the spot where she stated that they were. Nurses report that she continues to horribly and last ____ morning, she got up repeatedly stating that she needed to go get her bus. She was very hard to redirect and almost to the point of being combative with staff. This behavior is problematic for her. Should this continue and persist at home, she would definitely represent a significant safety risk to herself and others. MENTAL STATUS: She is alert and oriented to person, place, but not time. She could not tell me how long she has been here, stating that she believes it has been several weeks now. She was not able to tell me what she had to eat yesterday and seemed rather dismissive as I began to question her on things relating to her memory. Mood does seem to still be somewhat depressed and her affect is constricted and blunted. There is no hypomania or leo. There are no auditory or visual hallucinations. 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 PLAN: I will go ahead and maximize Exelon patch from 9.5 to 13.3 mg a day maximizing potential benefit. She is tolerating the Depakote that I started yesterday at a very low dose well, so I will double it increasing it to Depakote 250 mg in the morning and 500 mg at night to try to decrease her impulsivity and mood lability. We will continue to engage her in individual and drake milieu activity with the plan to return to the least restrictive environment when stable. ADRIANNA LAGUNAS MD CM:YAJAIRA [id number] ADRIANNA LAGUNAS MD 01/19/18 0114 interface
[~2018-01-15 18:17] MED LIST changes: +MEMANTINE HCL10 MG PO; +MIRTAZAPINE15 M2 PO; +RIVASTIGMINE1 EACH T
[2018-01-15 20:00] VITALS: BP 126/73
[2018-01-16 07:18] LABS: THYROID STIM HORMONE (HS) 4.1 uIU/ml (0.358-4.75)
[2018-01-16 08:02] VITALS: BP 143/68
[2018-01-16 08:12] LABS: VITAMIN D, 25-HYDROXY 22.3 ng/mL (30-100)
[2018-01-16 20:00] VITALS: BP 138/70
[2018-01-17 07:54] VITALS: BP 123/83
[2018-01-17 20:00] VITALS: BP 125/83
[2018-01-18 07:40] VITALS: BP 115/80; BP 117/63
[2018-01-18 20:00] VITALS: BP 118/74
[2018-01-19 09:02] VITALS: BP 117/58
[2018-01-19 20:00] VITALS: BP 108/70
[2018-01-20 08:18] VITALS: BP 122/78
[2018-01-20 08:42] VITALS: BP 122/78
[2018-01-20] MEDS ORDERED: EXELON13.3 MG/21 T (09:20)
[2018-01-20] MEDS ORDERED: DIVALPROEX SOD500 MG PO (09:20)
[2018-01-20] MEDS ORDERED: MEMANTINE HCL10 MG PO (09:20)
[2018-01-20] MEDS ORDERED: MIRTAZAPINE15 M2 PO (09:20)
== END 2018-01-20 14:14 | disposition other institution (70) | DRG 885 ==
LOC: 3N 18:17
PROVIDERS: Psychiatry & Neurology Psychiatry
DX: F33.2 Major depressive disorder, recurrent severe without psychotic features (principal); E44.0 Moderate protein-calorie malnutrition; E66.01 Morbid (severe) obesity due to excess calories; I48.2 Chronic atrial fibrillation; I11.0 Hypertensive heart disease with heart failure; I50.42 Chronic combined systolic (congestive) and diastolic (congestive) heart failure; E78.00 Pure hypercholesterolemia, unspecified; E55.9 Vitamin D deficiency, unspecified; Z68.42 Body mass index [BMI] 45.0-49.9, adult; G30.9 Alzheimer's disease, unspecified; F02.80 Dementia in other diseases classified elsewhere, unspecified severity, without behavioral disturbance, psychotic disturbance, mood disturbance, and anxiety; I25.10 Atherosclerotic heart disease of native coronary artery without angina pectoris; J44.9 Chronic obstructive pulmonary disease, unspecified; Z96.642 Presence of left artificial hip joint; Z79.899 Other long term (current) drug therapy; Z79.01 Long term (current) use of anticoagulants; Z88.8 Allergy status to other drugs, medicaments and biological substances; Z91.041 Radiographic dye allergy status; Z90.49 Acquired absence of other specified parts of digestive tract; Z90.710 Acquired absence of both cervix and uterus; Z82.49 Family history of ischemic heart disease and other diseases of the circulatory system; Z83.2 Family history of diseases of the blood and blood-forming organs and certain disorders involving the immune mechanism

== ENCOUNTER 2018-02-01 16:12 | Inpatient (IN) | payer MEDICARE ==
[~2018-02-01] VITALS: Ht 165.1 cm; Wt 108.4 kg
--- NOTE | ~2018-02-01 | PR ---
[place], [place] PROGRESS NOTE NAME: ERICKA TARANGO [facility] #: [id number] UNIT #: [id number] ROOM: 518 DOCTOR: CLARISSA LEGGETT MD BIRTHDATE: [birth year] DOS: 02/04/2018 SUBJECTIVE: The patient not eating well and her blood pressures have dropped. The patient does not communicate much. She appears to have psychomotor slowing and her does not want her to go to Psych Unit. PHYSICAL EXAMINATION: VITAL SIGNS: Blood pressure 78/44, heart rate of 62 beats per minute, afebrile. GENERAL: Generalized weakness. HEENT AND NECK: Extraocular movements are intact. Sclerae are anicteric. Oral mucosa is moist and clean. No obvious facial weakness. Neck is supple without any lymphadenopathy. No thyromegaly. No JVD. No carotid arterial bruits. LUNGS: Clear to auscultation. No wheezing. No rhonchi. CARDIOVASCULAR SYSTEM: Heart rate is regular in rate and rhythm. S1 and S2 normally audible. No significant murmur or any other abnormal cardiac sounds. ABDOMEN: Soft, nontender. No obvious organomegaly. Bowel sounds are present. No obvious herniation. EXTREMITIES: Without significant cyanosis or edema. Warm to touch. CENTRAL NERVOUS SYSTEM: Alert and oriented x 3. Cranial nerves II-XII are intact. Speech is normal. The patient is able to move all extremities. Normal muscle strength. Deep tendon reflexes are equal on both sides. Plantars were downgoing. IMPRESSION: The patient with advanced adult failure to thrive and also psychological issues being followed by Dr. Clifton. Family is not cooperating with transfer to Behavioral Health Unit. The patient was seen by Dr. Clifton. The patient not eating well, health is declining. She is getting weaker. The patient has been started on hydration with normal saline. 1. Acute hypotension related to dehydration and patient not consuming enough fluids and food. I am giving her appetite stimulation and nutritional supplements and stopped her blood pressure medications. The patient will be fully assisted with all meals. 2. Late onset Alzheimer's type dementia. 3. Acute over chronic kidney disease, likely related to dehydration. BUN and creatinine is improving with hydration with normal saline was 93 and 1.2 today. 4. Hyperkalemia with a potassium level of 5.2, being monitored closely. Should improve with hydration. The patient is not on any potassium supplements. 5. Chronic atrial fibrillation with controlled heart rates. The patient remains on Xarelto. 6. I will try to get the patient to long term facility for continued care and rehabilitation. [place], [place] PROGRESS NOTE NAME: ERICKA TARANGO UNIT #: [id number] ROOM: 8 DOCTOR: CLARISSA LEGGETT MD BIRTHDATE: [birth year] CLARISSA LEGGETT MD CM:PNTRANS [phone] CLARISSA LEGGETT MD 02/04/18 215 interface
--- NOTE | ~2018-02-01 | PR ---
[place], [place] PROGRESS NOTE NAME: ERICKA TARANGO [facility] #: [id number] UNIT #: [id number] ROOM: 518 DOCTOR: CLARISSA LEGGETT MD BIRTHDATE: [birth year] DOS: 02/05/2018 SUBJECTIVE: The patient is awake, alert, not eating much, only says a few words. Her is present with her. OBJECTIVE: GENERAL APPEARANCE: General weakness, obesity. The patient does not talk much except for a few words. VITAL SIGNS: She is afebrile, blood pressure 112/64, heart rate 76 beats a minute, breathing normally. HEENT AND NECK: Exam within normal limits. CARDIOVASCULAR SYSTEM: Heart rate is regular in rate and rhythm. S1 and S2 normally audible. LUNGS: Clear to auscultation. ABDOMEN: Soft, nontender. No obvious organomegaly. Bowel sounds are present. EXTREMITIES: Without significant cyanosis or edema. IMPRESSION: 1. Adult failure to thrive. The patient is mostly nonverbal, obese. Does not move much. She is not eating much and now she is being fully assisted with all meals and calorie counts are being performed by the dietary. 2. Advance adult failure to thrive and limited prognosis. The patient stays in the bed, does not walk anymore. She is working with physical therapy. 3. Late onset Alzheimer's type dementia. The patient generally lives at home with her . 4. Acute hypotension from hypovolemia, not eating much. Blood pressures have improved as her blood pressure medications have been stopped. 5. Hyperkalemia, treated with hydration. Potassium level has normalized. 6. Acute psychosis followed and treated by Dr. Clifton. 7. Chronic atrial fibrillation with controlled heart rates. The patient is anticoagulated with Xarelto. CLARISSA LEGGETT MD CM:PNTRANS [id number] CLARISSA LEGGETT MD 02/05/18 2359 interface
--- NOTE | ~2018-02-01 | CON ---
[place], [place] REPORT OF CONSULTATION [id number] UNIT #: [id number] ROOM: 518 DOCTOR: ADRIANNA LAGUNAS MD BIRTHDATE: [birth year] DOS: 02/03/2018 CHIEF COMPLAINT: The patient is nonverbal. HISTORY OF PRESENT ILLNESS: This is a 72-year-old female known to me from a previous admission to the [facility]. She most recently was there and transferred then to [facility] for further treatment. The patient who is now nonverbal, was accompanied by her and her daughter who were at bedside. Daughter reports that the mom had a significant mental status exchange operator the last week where she has become nonverbal. She has not been attending to her ADLs. She has not been eating or drinking nor has she consistently taken her medicine. The daughter reports that while at [facility], her Risperdal and Depakote were discontinued and these symptoms still persisted. Upon medical clearance through ER, she was found to have multiple abnormalities in her blood chemistries and was considered severely dehydrated, so she was admitted to the fifth floor for further evaluation and treatment. PAST MEDICAL HISTORY: Remarkable for Alzheimer's dementia, hypertension, atrial fibrillation, hyperlipidemia, COPD, morbid obesity, congestive heart failure, and hiatal hernia. MENTAL STATUS: Limited due to her lack of ability to communicate. DIAGNOSES: Metabolic encephalopathy and brief psychotic disorder. PLAN: Her Risperdal looks like it has already been discontinued, but Depakote was reordered. I will discontinue the Depakote. Maintain Exelon and Namenda. Neither of these drugs should be causing this symptom complex. I will go ahead and order a serum ammonia level as well as an amylase level. Her lipase is markedly elevated. She also has an elevated white count and UTI. Certainly these symptoms can be caused by a number of these metabolic factors. I would rule out further organicity and attempt to re-stabilize on medication. ADRIANNA LAGUNAS MD CM:CONSTR:REPORT OF CONSULTATION 1147 02/03/18 1348 interface
--- NOTE | ~2018-02-01 | PR ---
[place], [place] PROGRESS NOTE NAME: ERICKA TARANGO [facility] #: [id number] UNIT #: [id number] ROOM: 518 DOCTOR: BETSEY ELLIS,CLARISSA Fabian BIRTHDATE: [birth year] DOS: 02/07/2018 SUBJECTIVE: The patient is very weak, barely communicates. Finally, the patient's family, daughter told me that patient should go for rehabilitation. The patient's before this was not very agreeable to any rehab or even psych consult recommendations. OBJECTIVE: VITAL SIGNS: Blood pressure 110/86, heart rate 54 beats per minute, breathing 20 times per minute, temperature of 98.8 degrees Fahrenheit. GENERAL APPEARANCE: The patient is alert and oriented x 3, in no visible distress, except for barely verbal, very weak, obese and generalized weakness.. HEENT AND NECK: Exam within normal limits. CARDIOVASCULAR SYSTEM: Heart rate is regular in rate and rhythm. S1 and S2 normally audible. LUNGS: Clear to auscultation. ABDOMEN: Soft, nontender. No obvious organomegaly. Bowel sounds are present. EXTREMITIES: Without significant cyanosis or edema. IMPRESSION AND PLAN: 1. Urinary tract infection with cultures growing Proteus mirabilis sensitive to ceftriaxone. White cell count is elevated at 17,000 despite of treatment with antibiotics. I will repeat blood counts. ID consult was obtained. 2. Old age and advanced disability. The patient barely speaks and has not been eating very well. All her meals are being supervised and being assisted to 100%. 3. Chronic atrial fibrillation, with controlled heart rates. The patient is anticoagulated with Xarelto. 4. Hyperkalemia, resolved with hydration and normal saline, which has been continued. 5. Late onset Alzheimer's type dementia with decline in mental status and acute psychotic features, being followed by Dr. Clifton, the psychiatrist. CLARISSA LEGGETT MD CM:PNTRANS 25 [phone] CLARISSA LEGGETT MD 02/07/181909 interface
--- NOTE | ~2018-02-01 | DS ---
[place], [place] DISCHARGE SUMMARY NAME: ERICKA TARANGO [facility] #: [id number] UNIT #: [id number] ROOM: 518 DOCTOR: CLARISSA LEGGETT MD BIRTHDATE: [birth year] DOS: 02/08/2018 DISCHARGE DIAGNOSES: 1. Leukocytosis from uncertain etiology. 2. Treat for Clostridium diff colitis, just to see if leukocytosis improves. Repeat CBC in a week. 3. Adult failure to thrive. 4. Progressive Alzheimer's type dementia with acute psychosis, evaluated by Dr. Clifton. Please reconsult him. 5. Chronic atrial fibrillation with controlled heart rates. 6. Hyperkalemia, resolved with hydration with normal saline. 7. Urinary tract infection with Proteus mirabilis, also positive blood cultures, treated with ceftriaxone. 8. Benign essential hypertension. 9. History of ruptured quadriceps tendon and the right patellar fracture in the past. 10. History of coronary artery disease of the [place] vessels and myocardial infarction. 11. Mixed hyperlipidemia. 12. Chronic obstructive pulmonary disease. 13. Morbid obesity. 14. Chronic congestive heart failure. 15. Hiatal hernia. HOSPITAL COURSE: The patient was admitted to [facility] with progressive weakness and deterioration of her mental status, with elevation of BUN and creatinine. The patient not eating well for about 3 days. She was dehydrated and there was a definite decline in her health. The patient has not been walking anymore. Normally, the patient was living at home with her , but not recently, she had been [facility] the [facility]. Good discussion was held with her . Psych consult was obtained and I made a request to transfer her to Behavioral Health facility because she was not speaking or eating. The patient's declined. Later on a discussion was held with the patient's daughter and she understands that the patient's prognosis remains poor as her health is declining. Daughter does not want PEG tube insertion for continued nutritional support because the patient not eating very well. The patient appears to have achieved maximum benefit from this admission and is being discharged to a [facility]. Progressive leukocytosis, which was evaluated by Infectious Disease specialist. I am considering C. diff colitis, although she has no diarrhea. Stool studies have been ordered for C. diff and I am going to treat her empirically with Flagyl for 2 weeks. Urinary tract infection with cultures positive for Proteus mirabilis, treated with ceftriaxone adequately. Advance adult failure to thrive and suboptimal prognosis and decline in the patient's health condition. Family is aware. [place], [place] DISCHARGE SUMMARY NAME: ERICKA TARANGO UNIT #: [id number] ROOM: 518 DOCTOR: BETSEY ELLIS,CLARISSA Fabian BIRTHDATE: [birth year] Chronic atrial fibrillation. The patient anticoagulated with Xarelto. Heart rates are controlled. Hyperkalemia from dehydration, resolved with hydration with normal saline. Please consult [facility] palliative care, Ana to follow. Repeat CBC in 1 week along with basic metabolic profile. CLARISSA LEGGETT MD CM:JONAS [id number] 1117 CLARISSA LEGGETT MD 02/08/18 1117 interface
--- NOTE | ~2018-02-01 | PR ---
[place], [place] PROGRESS NOTE NAME: ERICKA TARANGO [facility] #: [id number] UNIT #: [id number] ROOM: 518 DOCTOR: CLARISSA LEGGETT MD BIRTHDATE: [birth year] DOS: 02/03/2018 SUBJECTIVE: The patient is still mostly gazing ahead, only follows basic commands, but is not verbalizing anything. PHYSICAL EXAMINATION: VITAL SIGNS: Blood pressure 128/100, heart rate of 97 beats per minute, breathing 15-18 times per minute, afebrile. GENERAL: Generalized weakness. The patient is nonverbal, but follows basic commands. Obesity. HEENT AND NECK: Exam within normal limits. CARDIOVASCULAR SYSTEM: Heart rate is regular in rate and rhythm. S1 and S2 normally audible. LUNGS: Clear to auscultation. ABDOMEN: Soft, nontender. No obvious organomegaly. Bowel sounds are present. EXTREMITIES: Without significant cyanosis or edema. IMPRESSION AND PLAN: 1. The patient with altered mental status and urinary infection, still not verbalizing. I am consulting psychiatrist, Dr. Clifton to reevaluate her. 2. Dehydration and hypovolemia. The patient had not eaten for 3 days. The patient is being hydrated with normal saline and is being encouraged to eat. 3. Benign essential hypertension. Blood pressures are being monitored and treated and controlled. 4. Chronic atrial fibrillation with controlled heart rates. The patient remains on Xarelto. 5. Late onset of ____ dementia. The patient is being followed and we are getting a psych consult. 6. Acute or chronic kidney disease related to dehydration. BUN and creatinine have improved to 101 and 1.25 with hydration with normal saline. 7. Moderate to severe protein-calorie malnutrition. The patient is being encouraged to eat. CLARISSA LEGGETT MD CM:PNTRANS [id number] CLARISSA LEGGETT MD 02/03/18 1037 interface
--- NOTE | ~2018-02-01 | PR ---
[place], [place] PROGRESS NOTE NAME: ERICKA TARANGO [facility] #: [id number] UNIT #: [id number] ROOM: 518 DOCTOR: CLARISSA LEGGETT MD BIRTHDATE: [birth year] DOS: 02/06/2018 SUBJECTIVE: The patient had developed leukocytosis from no obvious reason while she was being treated with ceftriaxone for urinary tract infection. OBJECTIVE: VITAL SIGNS: Blood pressure 96/50, heart rate of 61 beats per minute, breathing 22 times per minute, temperature 98 degrees Fahrenheit. GENERAL APPEARANCE: The patient is alert and oriented x 3, in no visible distress. The patient barely talks, very weak, obese, unable to ambulate. HEENT AND NECK: Exam within normal limits. CARDIOVASCULAR SYSTEM: Heart rate is regular in rate and rhythm. S1 and S2 normally audible. LUNGS: Clear to auscultation. ABDOMEN: Soft, nontender. No obvious organomegaly. Bowel sounds are present. EXTREMITIES: Without significant cyanosis or edema. IMPRESSION AND PLAN: 1. Urinary tract infection with cultures growing Proteus mirabilis sensitive to ceftriaxone, but surprisingly her leukocytosis has increased to 16,000 despite of treatment with antibiotic. I will get an opinion from Infectious Disease specialist before transferring her back to the senior care. 2. Old age, advanced disability. The patient barely speaks and she has not been eating very well, calorie counts are in progress. 3. Chronic atrial fibrillation, with controlled heart rates. The patient is anticoagulated with Xarelto. 4. Hyperkalemia, resolved with hydration with normal saline. 5. Late onset Alzheimer's type dementia. The patient was living at home with her , but she requires more care than he can handle since she is not walking anymore. 6. Advance adult failure to thrive. CLARISSA LEGGETT MD CM:PNTRANS 26 [phone] CLARISSA LEGGETT MD 02/06/18 062 interface
--- NOTE | ~2018-02-01 | WRIGHTHP ---
[place], [place] PATIENT HISTORY AND PHYSICAL EXAM NAME: ERICKA TARANGO [facility] #: [id number] UNIT #: [id number] ROOM: 518 DOCTOR: CLARISSA LEGGETT MD BIRTHDATE: [birth year] DOS: 02/01/2018 HISTORY OF PRESENT ILLNESS: The patient is a 72-year-old female with a past medical history of: 1. Late onset Alzheimer's type dementia. 2. Hypertension. 3. Chronic atrial fibrillation. 4. History of ruptured right quadriceps tendon and right patellar fracture. 5. History of coronary artery disease and [place] 6. Mixed hyperlipidemia. 7. COPD. 8. Morbid obesity. 9. Congestive heart failure, chronic. 10. Hiatal hernia. The patient presented to the Emergency Department at [facility] with progressive weakness and deterioration in condition including mental status change. [facility] found to be abnormal with elevation of BUN and creatinine. She was considered dehydrated and not eating food for about 3 days. After admission, the patient is not giving me any history. No recent chest pain. No increasing shortness of breath. No GI or urinary symptoms. The patient was found to have urinary tract infection on testing in the Emergency Department. HOME MEDICATIONS: The patient takes vitamin D supplements, Depakote, folic acid, hydrochlorothiazide, lisinopril, memantine, metoprolol, mirtazapine, rivastigmine, potassium chloride, Xarelto. ALLERGIES: Known allergies to IODINE, NITROFURANTOIN. PHYSICAL EXAMINATION: GENERAL: Awake, alert, not answering any questions right now, in no visible distress, generalized weakness and obesity. HEENT AND NECK: Extraocular movements are intact. Sclerae are anicteric. Oral mucosa is moist and clean. No obvious facial weakness. Neck is supple without any lymphadenopathy. No thyromegaly. No JVD. No carotid arterial bruits. LUNGS: Clear to auscultation. No wheezing. No rhonchi. CARDIOVASCULAR SYSTEM: Heart rate is regular in rate and rhythm. S1 and S2 normally audible. No significant murmur or any other abnormal cardiac sounds. ABDOMEN: Soft, nontender. No obvious organomegaly. Bowel sounds are present. No obvious herniation. EXTREMITIES: Without significant cyanosis or edema. Warm to touch. CENTRAL NERVOUS SYSTEM: Alert and oriented x 3. Cranial nerves II-XII are intact. Speech is normal. The patient is able to move all extremities. Normal muscle strength. Deep tendon reflexes are equal on both sides. Plantars were downgoing. IMPRESSION AND PLAN: 1. The patient presenting with altered mental status, urinary tract infection and not eating for 3 days with dehydration and hypovolemia. The patient is to [place], [place] PATIENT HISTORY AND PHYSICAL EXAM [facility]: [id number] UNIT #: [id number] ROOM: 8 DOCTOR: CLARISSA LEGGETT MD BIRTHDATE: [birth year] be started on hydration with normal saline and antibiotics for her urine infection. 2. Benign essential hypertension. Blood pressure is to be monitored and treated as necessary. 3. Chronic atrial fibrillation, with controlled heart rates. The patient remains anticoagulated with Xarelto. 4. Late onset Alzheimer's type dementia, treated and controlled. CLARISSA LEGGETT MD CM:HISPHYS:PATIENT HISTORY AND PHYSICAL EXAMINATION 1433 07 CLARISSA LEGGETT MD 02/02/181707 interface
[~2018-02-01 16:12] MED LIST changes: +DIVALPROEX SOD500 MG PO; +EXELON13.3 MG/21 T
[2018-02-01 16:17] VITALS: BP 96/58
[2018-02-01 17:23] LABS: HEMATOCRIT 48.3 % (37.0-47.0); MEAN CELL VOLUME 92.4 fl (81.0-99.0); MEAN CORPUSCULAR HGB 28.7 pg (27.0-31.0); MEAN CORPUSCULAR HGB CONC 31.1 g/dl (33.0-37.0); MEAN PLATELET VOLUME 10.3 fl (9.6-12.3); PLATELET COUNT AUTOMATED 326 10*3/uL (130-400); RED BLOOD COUNT 5.23 10*6/uL (4.10-5.10); RED CELL DISTRI WIDTH 13.1 % (0-14.5); WHITE BLOOD COUNT 13.6 10*3/uL (4.8-10.8)
[2018-02-01 17:33] LABS: ACT PARTIAL THROMBO TIME 27.6 SECONDS (20.8-31.5); INTERNATIONAL NORM RATIO 1.1 (2.0-3.5)
[2018-02-01 17:43] LABS: BURR CELLS FEW; PLATELET SUFFICIENCY NORMAL (NORMAL); TOTAL CELLS COUNTED 100 #CELLS
[2018-02-01 17:46] LABS: LIPASE 528 U/L (73-393)
[2018-02-01 17:46] LABS: BILIRUBIN NEGATIVE (NEGATIVE); BLOOD 1+ (NEGATIVE); CLARITY CLOUDY (CLEAR); COLOR YELLOW (YELLOW); GLUCOSE NEGATIVE (NEGATIVE); KETONE NEGATIVE (NEGATIVE); LEUKO ESTERASE 2+ (NEGATIVE); NITRITE NEGATIVE (NEGATIVE); PH 5.5 (5.0-9.0); SPECIFIC GRAVITY >= 1.030 (1.005-1.030); UROBILINOGEN 0.2 E.U./dl (0.2-1.0)
[2018-02-01 17:50] LABS: TROPONIN I < 0.015 ng/ml (<0.045)
[2018-02-01 18:02] LABS: BACTERIA 2+; WBC 31-40 wbc/hpf (0-5)
[2018-02-01] MEDS ORDERED: LASIX40 MG PO (19:50)
[2018-02-01] MEDS ORDERED: CEFPROZIL250 MG PO (19:51)
[2018-02-01] MEDS ORDERED: NATURE'S BLEND F1 MG PO (19:52)
[2018-02-01 20:00] VITALS: BP 118/103
[2018-02-02] VITALS: BP 131/99
[2018-02-02 06:51] LABS: HEMATOCRIT 50.2 % (37.0-47.0); HEMOGLOBIN 15.8 g/dl (12.0-16.0); MEAN CELL VOLUME 91.1 fl (81.0-99.0); MEAN CORPUSCULAR HGB 28.7 pg (27.0-31.0); MEAN CORPUSCULAR HGB CONC 31.5 g/dl (33.0-37.0); MEAN PLATELET VOLUME 10.2 fl (9.6-12.3); PLATELET COUNT AUTOMATED 352 10*3/uL (130-400); RED BLOOD COUNT 5.51 10*6/uL (4.10-5.10); RED CELL DISTRI WIDTH 13.2 % (0-14.5); WHITE BLOOD COUNT 12.3 10*3/uL (4.8-10.8)
[2018-02-02 07:10] LABS: ALBUMIN 1.3 gm/dl (3.1-4.5); CREATININE 1.25 mg/dL (0.55-1.02); POTASSIUM 4.5 mmol/L (3.5-5.1); TOTAL PROTEIN 5.4 gm/dL (6.4-8.2)
[2018-02-02 07:29] LABS: PLATELET SUFFICIENCY NORMAL (NORMAL); TOTAL CELLS COUNTED 100 #CELLS
[2018-02-02 08:00] VITALS: BP 96/52
[2018-02-02 12:00] VITALS: BP 97/59
[2018-02-02 16:00] VITALS: BP 100/60
[2018-02-02 20:00] VITALS: BP 94/53
[2018-02-03] VITALS: BP 98/59
[2018-02-03 07:10] LABS: CREATININE 1.53 mg/dL (0.55-1.02)
[2018-02-03 08:00] VITALS: BP 129/99
[2018-02-03 09:21] VITALS: BP 128/100
[2018-02-03 12:00] VITALS: BP 101/56
[2018-02-03 16:00] VITALS: BP 104/64
[2018-02-03 20:00] VITALS: BP 114/75
[2018-02-04] VITALS: BP 122/73
[2018-02-04 06:29] LABS: POTASSIUM 5.2 mmol/L (3.5-5.1)
[2018-02-04 06:31] LABS: CREATININE 1.22 mg/dL (0.55-1.02)
[2018-02-04 08:00] VITALS: BP 110/88
[2018-02-04 16:00] VITALS: BP 75/33
[2018-02-04 16:20] VITALS: BP 78/44
[2018-02-04 20:00] VITALS: BP 128/77
[2018-02-05] VITALS: BP 108/67
[2018-02-05 07:09] LABS: CHLORIDE 110 mmol/L (98-107); CREATININE 0.96 mg/dL (0.55-1.02); POTASSIUM 4.8 mmol/L (3.5-5.1); SODIUM 144 mmol/L (136-145)
[2018-02-05 07:22] LABS: BUN 68 mg/dl (7-24)
[2018-02-05 08:00] VITALS: BP 97/83
[2018-02-05 13:46] VITALS: BP 110/56
[2018-02-05 16:00] VITALS: BP 112/64
[2018-02-06] VITALS: BP 106/81
[2018-02-06 07:40] LABS: BASO # 0.1 10*3/uL (0.0-0.1); BASO % 0.4 % (0.0-1.0); EOS # 0.1 10*3/uL (0.0-0.4); EOS % 0.8 % (1.0-4.0); HEMATOCRIT 48.3 % (37.0-47.0); HEMOGLOBIN 15.1 g/dl (12.0-16.0); LYMPH # 2.5 10*3/uL (1.3-4.4); LYMPH % 15.9 % (27.0-41.0); MEAN CELL VOLUME 91.3 fl (81.0-99.0); MEAN CORPUSCULAR HGB 28.5 pg (27.0-31.0); MEAN CORPUSCULAR HGB CONC 31.3 g/dl (33.0-37.0); MEAN PLATELET VOLUME 10.4 fl (9.6-12.3); MONO # 1.2 10*3/uL (0.1-1.0); MONO % 7.6 % (3.0-9.0); NEUT % 74.7 % (47.0-73.0); PLATELET COUNT AUTOMATED 332 10*3/uL (130-400); RED BLOOD COUNT 5.29 10*6/uL (4.10-5.10); RED CELL DISTRI WIDTH 13.2 % (0-14.5)
[2018-02-06 08:00] VITALS: BP 105/72
[2018-02-06 16:00] VITALS: BP 96/50
[2018-02-06 20:00] VITALS: BP 148/84
[2018-02-07] VITALS: BP 106/72
[2018-02-07 07:50] LABS: HEMATOCRIT 44.4 % (37.0-47.0); HEMOGLOBIN 13.5 g/dl (12.0-16.0); MEAN CELL VOLUME 94.3 fl (81.0-99.0); MEAN CORPUSCULAR HGB 28.7 pg (27.0-31.0); MEAN CORPUSCULAR HGB CONC 30.4 g/dl (33.0-37.0); MEAN PLATELET VOLUME 10.4 fl (9.6-12.3); PLATELET COUNT AUTOMATED 290 10*3/uL (130-400); RED BLOOD COUNT 4.71 10*6/uL (4.10-5.10); RED CELL DISTRI WIDTH 13.3 % (0-14.5); WHITE BLOOD COUNT 16.9 10*3/uL (4.8-10.8)
[2018-02-07 08:00] VITALS: BP 124/95
[2018-02-07 08:37] LABS: PLATELET SUFFICIENCY NORMAL (NORMAL); TOTAL CELLS COUNTED 100 #CELLS
[2018-02-07 16:00] VITALS: BP 110/86
[2018-02-07 20:00] VITALS: BP 105/77
[2018-02-08] VITALS: BP 123/58
[2018-02-08 07:05] LABS: BASO # 0.1 10*3/uL (0.0-0.1); BASO % 0.5 % (0.0-1.0); EOS # 0.1 10*3/uL (0.0-0.4); EOS % 0.7 % (1.0-4.0); HEMATOCRIT 45.6 % (37.0-47.0); HEMOGLOBIN 14.5 g/dl (12.0-16.0); LYMPH # 2.8 10*3/uL (1.3-4.4); LYMPH % 14.4 % (27.0-41.0); MEAN CELL VOLUME 91.4 fl (81.0-99.0); MEAN CORPUSCULAR HGB 29.1 pg (27.0-31.0); MEAN CORPUSCULAR HGB CONC 31.8 g/dl (33.0-37.0); MEAN PLATELET VOLUME 10.7 fl (9.6-12.3); MONO # 1.3 10*3/uL (0.1-1.0); MONO % 6.7 % (3.0-9.0); NEUT # 14.8 10*3/uL (2.3-7.9); PLATELET COUNT AUTOMATED 280 10*3/uL (130-400); RED BLOOD COUNT 4.99 10*6/uL (4.10-5.10); RED CELL DISTRI WIDTH 13.4 % (0-14.5); WHITE BLOOD COUNT 19.2 10*3/uL (4.8-10.8)
[2018-02-08 08:00] VITALS: BP 110/84
[2018-02-08] MEDS ORDERED: FLAGYL250 MG PO (10:51)
[2018-02-08 12:00] VITALS: BP 122/76
== END 2018-02-08 15:01 | disposition other institution (70) | DRG 56 ==
LOC: ED 16:12 → EDHOLD 18:24 → 5E 18:24
PROVIDERS: Internal Medicine; Nurse Practitioner Family
PROC: 0HBLXZZ Excision of Left Lower Leg Skin, External Approach (ICD-10-PCS; principal; 2018-02-03)
DX: G30.1 Alzheimer's disease with late onset (principal); E43 Unspecified severe protein-calorie malnutrition; N17.9 Acute kidney failure, unspecified; G93.41 Metabolic encephalopathy; A04.72 Enterocolitis due to Clostridium difficile, not specified as recurrent; I13.0 Hypertensive heart and chronic kidney disease with heart failure and stage 1 through stage 4 chronic kidney disease, or unspecified chronic kidney disease; I95.9 Hypotension, unspecified; E87.5 Hyperkalemia; I50.42 Chronic combined systolic (congestive) and diastolic (congestive) heart failure; N39.0 Urinary tract infection, site not specified; F23 Brief psychotic disorder; E66.01 Morbid (severe) obesity due to excess calories; I48.2 Chronic atrial fibrillation; I83.029 Varicose veins of left lower extremity with ulcer of unspecified site; E78.2 Mixed hyperlipidemia; N18.9 Chronic kidney disease, unspecified; Z66 Do not resuscitate; Z51.5 Encounter for palliative care; F02.80 Dementia in other diseases classified elsewhere, unspecified severity, without behavioral disturbance, psychotic disturbance, mood disturbance, and anxiety; R62.7 Adult failure to thrive; B96.4 Proteus (mirabilis) (morganii) as the cause of diseases classified elsewhere; E86.0 Dehydration; F32.9 Major depressive disorder, single episode, unspecified; E78.00 Pure hypercholesterolemia, unspecified; Z96.642 Presence of left artificial hip joint; I25.10 Atherosclerotic heart disease of native coronary artery without angina pectoris; J44.9 Chronic obstructive pulmonary disease, unspecified; I83.019 Varicose veins of right lower extremity with ulcer of unspecified site; Z68.39 Body mass index [BMI] 39.0-39.9, adult; Z88.8 Allergy status to other drugs, medicaments and biological substances; Z91.041 Radiographic dye allergy status; Z79.899 Other long term (current) drug therapy; Z79.01 Long term (current) use of anticoagulants; I25.2 Old myocardial infarction; Z90.49 Acquired absence of other specified parts of digestive tract; Z90.710 Acquired absence of both cervix and uterus; Z82.49 Family history of ischemic heart disease and other diseases of the circulatory system; Z84.89 Family history of other specified conditions; Z87.81 Personal history of (healed) traumatic fracture

== ENCOUNTER 2018-02-19 10:44 | Inpatient (IN) | payer MEDICARE ==
[2018-02-19] VITALS (8 sets, daily range): BP systolic 90–143; BP diastolic 00–101
[~2018-02-19] VITALS: Ht 170.1 cm; Wt 109.5 kg
--- NOTE | ~2018-02-19 | PR ---
[place], [place] PROGRESS NOTE NAME: ERICKA TARANGO [facility] #: [id number] UNIT #: [id number] ROOM: 501 DOCTOR: CLARISSA LEGGETT MD BIRTHDATE: [birth year] DOS: 02/20/2018 SUBJECTIVE: The patient with some vague complains of abdominal pains with abdominal exam was normal, does not speak much. OBJECTIVE: VITAL SIGNS: Blood pressure 103/63, heart rate of 94 beats per minute, breathing normally, afebrile. GENERAL APPEARANCE: Generalized weakness and morbid obesity. HEENT AND NECK: Exam within normal limits. CARDIOVASCULAR SYSTEM: Heart rate is regular in rate and rhythm. S1 and S2 normally audible. LUNGS: Clear to auscultation. ABDOMEN: Soft, nontender. No obvious organomegaly. Bowel sounds are present. EXTREMITIES: Without significant cyanosis or edema. IMPRESSION: 1. The patient with atrial fibrillation with rapid ventricular response with better controlled heart rates. The patient is anticoagulated with blood thinners adequately and heart rate is controlled with diltiazem now. Her IV diltiazem has been stopped and cardiac enzymes were normal. 2. Generalized weakness and adult failure to thrive. The patient to work with physical therapy. 3. Chronic kidney disease, stage 3b, stable. 4. Hyperkalemia, resolved with treatment with Kayexalate. 5. Coronary artery disease of the [place] vessels without chest pains. 6. Benign essential hypertension, treated and controlled. 7. Combined systolic, diastolic type congestive heart failure, compensated. CLARISSA LEGGETT MD CM:PNTRANS 31 37 CLARISSA LEGGETT MD 02/20/182135 interface
--- NOTE | ~2018-02-19 | DS ---
[place], [place] DISCHARGE SUMMARY NAME: ERICKA TARANGO [facility] #: [id number] UNIT #: [id number] ROOM: 501 DOCTOR: CLARISSA LEGGETT MD BIRTHDATE: [birth year] DOS: 02/21/2018 DISCHARGE DIAGNOSES: 1. Atrial fibrillation with rapid ventricular response. 2. Generalized weakness, adult failure to thrive. 3. Chronic kidney disease stage 3b. 4. Hyperkalemia. 5. Coronary artery disease of the [place] vessels. 6. Benign essential hypertension. 7. Combined systolic, diastolic type congestive heart failure. 8. Chronic morbid obesity. 9. Progressive Alzheimer's type dementia and psychosis. 10. Chronic atrial fibrillation. 11. History of ruptured quadriceps tendon. 12. Right patellar fracture in the past. 13. Mixed hyperlipidemia. 14. Chronic obstructive pulmonary disease. 15. Hiatal hernia. HOSPITAL COURSE: 1. The patient was sent to the Emergency Department at [facility] for hyperkalemia rapid heart rate with chronic underlying atrial fibrillation. The patient started on IV Cardizem and anticoagulation and admitted. The patient was followed by Cardiology, treated with IV Cardizem and finally converted to oral Cardizem. The patient's heart rates are better controlled and she has been cleared by Cardiology to [facility]. The patient was also started on anticoagulation. 2. Coronary artery disease of [place] vessels without chest pains. 3. Combined systolic, diastolic type, chronic congestive heart failure, compensated. 4. Recent Clostridium difficile colitis, treated with Flagyl, the patient without diarrhea. 5. Late onset Alzheimer's type dementia to be followed and treated. The patient also had psychosis and was seen by Dr. Clifton earlier. 6. Chronic kidney disease stage 3b. 7. Acute hyperkalemia treated with Kayexalate. Potassium level normalized. Please keep the patient on low potassium diet. LABORATORY DATA: Blood cultures negative. BUN and creatinine 99 and 1.6. Potassium level is 4.7 before discharge. Cardiac enzymes were negative. Venous Dopplers without any evidence of DVT. DISCHARGE MANAGEMENT: Diltiazem CD 240 mg a day, Xarelto 20 mg a day, sodium bicarbonate 650 mg b.i.d. The patient to finish metronidazole course, she was getting earlier 250 mg t.i.d. for 2 weeks, Tylenol 1000 mg hours regularly. [place], [place] DISCHARGE SUMMARY NAME: ERICKA TARANGO UNIT #: [id number] ROOM: [facility] DOCTOR: CLARISSA LEGGETT MD BIRTHDATE: [birth year] CLARISSA LEGGETT MD CM:JONAS 1649 1740 CLARISSA LEGGETT MD 02/21/18 1739 interface
--- NOTE | ~2018-02-19 | PR ---
[place], [place] PROGRESS NOTE NAME: ERICKA TARANGO UNIT #: [id number] ROOM: 501 DOCTOR: VON AYOUB MD BIRTHDATE: [birth year] DOS: 02/21/2018 SUBJECTIVE: The patient was seen at her bedside today, 02/21/2018, with no family in attendance for followup of her atrial fibrillation with rapid ventricular response. She is an unfortunate 72-year-old woman with significant dementia, who is a senior care resident. She was sent to the Emergency Room with an elevated potassium level. She was treated with Kayexalate and her potassium is now normal at 4.7. She does have a history of permanent atrial fibrillation and was noted to have a rapid ventricular response to atrial fibrillation on admission. Her prehospital medications did not include anything for rate slowing, although she was on anticoagulation with rivaroxaban. I did start her on diltiazem orally and her rate has come under good control. The patient is arousable and responds to questions. She denies any chest pain or shortness of breath at this time. PHYSICAL EXAMINATION: VITAL SIGNS: Today her pulse is 62 and irregularly irregular, blood pressure is 136/64. She is afebrile. NECK: Supple. She has no jugular distention. Carotids are full. LUNGS: Respirations are unlabored. Chest is clear anteriorly and laterally. HEART: Has an irregularly irregular rhythm without murmurs or gallops. ABDOMEN: Obese. EXTREMITIES: Showed trace edema bilaterally. IMPRESSION: 1. Permanent atrial fibrillation with intermittent rapid ventricular response. 2. Alzheimer's dementia. 3. Renal insufficiency with acute exacerbation. 4. Elevated potassium level -- resolved. 5. Peripheral edema. PLAN: She does seem to be doing well from a cardiac standpoint. No other workup is planned at this time. She should be discharged back to the senior care on diltiazem for rate control along with her rivaroxaban. We will be available to see her if needed. I thank Dr. Smith for asking our advice regarding her care. [place], [place] PROGRESS NOTE NAME: ERICKA TARANGO UNIT #: [id number] ROOM: 501 DOCTOR: VON AYOUB MD BIRTHDATE: [birth year] VON AYOUB MD CM:PNLEE [id number] 21 VON AYOUB MD 02/21/181920 interface
--- NOTE | ~2018-02-19 | CON ---
[place], [place] REPORT OF CONSULTATION NAME[id number] UNIT #: [id number] ROOM: 501 DOCTOR: VON AYOUB MD BIRTHDATE: [birth year] DOS: 02/20/2018 REASON FOR CONSULTATION: Atrial fibrillation with rapid ventricular response. HISTORY OF PRESENT ILLNESS: The patient is a 72-year-old woman who has a history of significant dementia. She is a [facility] resident. She reportedly was found to have an elevated potassium level on recent laboratory studies. She was sent to the Emergency Room where her potassium was 6. The potassium on 02/17/2018 was reportedly 6.5. In the Emergency Room, she was given Kayexalate. She was also noted to have a rapid ventricular response to her chronic atrial fibrillation. She was therefore admitted to the hospital for further management. The patient was seen in her room without any family present. She is unable to give any history. She simply states that she is tired and that she wished her leg would relax. PAST MEDICAL HISTORY: Includes 1. Permanent atrial fibrillation with intermittent rapid ventricular response. 2. Alzheimer's dementia. 3. History of sepsis. 4. History of chronic renal insufficiency with acute exacerbations. Baseline creatinine is 0.8, currently creatinine level is 1.53. Baseline BUN is 15 and currently is 96. MEDICATIONS: Prior to admission included vitamin D 1000 units daily, folic acid 1 mg daily, metronidazole 250 mg p.o. t.i.d., morphine sulfate oral solution 10 mg every 2 hours as needed, rivaroxaban 20 mg daily, sodium bicarbonate 650 mg p.o. b.i.d. and Desenex powder to appropriate areas b.i.d. ALLERGIES: The chart indicates that she is allergic to IODINE and NITROFURANTOIN. REVIEW OF SYSTEMS: The patient denies any pain. She is unable to give a coherent history to provide an adequate review of systems. FAMILY HISTORY: Not available. SOCIAL HISTORY: The patient is a [facility] resident. She does not consume alcohol, tobacco or illegal drugs. PHYSICAL EXAMINATION: GENERAL: The patient is an overweight white female who is awake, alert and not oriented except to self. VITAL SIGNS: Pulse is 93 and irregularly irregular, blood pressure is 106/78. She is afebrile. She weighs 109.5 kg and has a body mass index of 37.8. HEENT: Normocephalic and atraumatic. Extraocular muscles are intact. Sclerae are clear. Pupils are equal, round and react to light. The oral mucosa is moist. Tongue is midline. NECK: Supple. She has no jugular distention. Carotids are full. I heard no [place], [place] REPORT OF CONSULTATION NAME: ERICKA TARANGO UNIT #: [id number] ROOM: [facility] DOCTOR: VON AYOUB MD BIRTHDATE: [birth year] bruits. LUNGS: Respirations are unlabored. Chest has decreased breath sounds at the bases. There are no wheezes or rales. CARDIOVASCULAR: Her heart has an irregularly irregular rhythm without murmurs or gallops. The PMI is not displaced. She has no precordial heave, lift or thrill. ABDOMEN: Obese, but otherwise benign, without masses, organomegaly or bruits. EXTREMITIES: Showed 2+ edema of the ankles. Peripheral pulses are palpable. LABORATORY DATA: Hemoglobin is 14.5, white count 11,500, platelet count 320,000. Sodium 139, potassium 4.8, chloride 109, CO2 of 21, BUN 96, creatinine 1.53. Troponin levels are within normal limits. TSH was mildly elevated at 6.76. Chest x-ray showed no acute process. IMPRESSIONS: 1. Permanent atrial fibrillation with intermittent rapid ventricular response. 2. Alzheimer's dementia. 3. Renal insufficiency with acute exacerbation. 4. Elevated potassium level. 5. Peripheral edema. PLAN: The patient is therapeutically anticoagulated with rivaroxaban. I think that she will require long-term therapy with a rate limiting medications such as diltiazem. We will start a short acting diltiazem and stop her intravenous drip. No other cardiac workup is being considered at this time. The patient's DNR/comfort care status is noted and we will attempt to treat her empirically as much as possible so as to avoid excessive testing, etc. We thank Dr. Smith for asking our advice regarding her management. VON AYOUB MD CM:CONSTR:REPORT OF CONSULTATION 1446 02/20/18 1544 interface
--- NOTE | ~2018-02-19 | WRIGHTHP ---
[place], [place] PATIENT HISTORY AND PHYSICAL EXAM NAME: ERICKA TARANGO [facility] #: [id number] UNIT #: [id number] ROOM: [facility] [place][note 2] DOCTOR: CLARISSA LEGGETT MD BIRTHDATE: [birth year] DOS: 02/19/2018 HISTORY OF PRESENT ILLNESS: 1. The patient is a 72-year-old female with a past medical history of advanced disability. The patient is bedridden. 2. Obesity. 3. Advance adult failure to thrive. 4. Progressive Alzheimer's type dementia and psychosis. 5. Chronic atrial fibrillation. 6. Chronic hyperkalemia. 7. Benign essential hypertension. 8. History of ruptured quadriceps tendon and right patellar fracture in the past. 9. Coronary artery disease of the [place] vessels and myocardial infarction. 10. Mixed hyperlipidemia. 11. COPD. 12. Morbid obesity. 13. History of chronic congestive heart failure. 14. Hiatal hernia. The patient presented to the Emergency Department at [facility] and was seen by Dr. Alee Mario for high potassium levels and she was found to have rapid heart rate with chronic underlying atrial fibrillation. The patient started on IV Cardizem infusion and her heart rate improved. The patient also given Kayexalate in the Emergency Department and then admitted to [facility] for further management. After admission, the patient is not able to provide any history. She does not appear to be in any visible distress. REVIEW OF SYSTEMS: LUNGS: No increasing shortness of breath. GASTROINTESTINAL: No nausea, vomiting, diarrhea or constipation. CARDIOVASCULAR SYSTEM: No chest pains, no palpitations. FAMILY HISTORY: Noncontributory. SOCIAL HISTORY: No recent history of smoking cigarettes, alcohol and drug abuse. HOME MEDICATIONS: Metronidazole, rivastigmine, Depakote, mirtazapine, memantine. PHYSICAL EXAMINATION: GENERAL: Awake, alert, unable to provide much history. Morbid obesity, generalized weakness, chronic edema involving both lower extremities and dry skin. HEENT AND NECK: Extraocular movements are intact. Sclerae are anicteric. Oral mucosa is moist and clean. No obvious facial weakness. Neck is supple without any lymphadenopathy. No thyromegaly. No JVD. No carotid arterial bruits. LUNGS: Clear to auscultation. No wheezing. No rhonchi. CARDIOVASCULAR SYSTEM: Heart rate is regular in rate and rhythm. S1 and S2 normally audible. No significant murmur or any other abnormal cardiac sounds. [place], [place] PATIENT HISTORY AND PHYSICAL EXAM [facility]: [id number] UNIT #: [id number] ROOM: [facility] [place][note 2] DOCTOR: CLARISSA LEGGETT MD BIRTHDATE: [birth year] ABDOMEN: Soft, nontender. No obvious organomegaly. Bowel sounds are present. No obvious herniation. EXTREMITIES: Without significant cyanosis or edema. Warm to touch. CENTRAL NERVOUS SYSTEM: Alert and oriented x 3. Cranial nerves II-XII are intact. Speech is normal. The patient is able to move all extremities. Normal muscle strength. Deep tendon reflexes are equal on both sides. Plantars were downgoing. IMPRESSION: 1. Generalized weakness and adult failure to thrive. The patient to work with physical therapy and will take bedsore precautions, use an air mattress and turn her every 2 hours and take fall precautions. 2. Chronic atrial fibrillation with rapid ventricular response, controlled with IV Cardizem and consulting Cardiology to follow and manage the patient. The patient anticoagulated with Xarelto, which is being continued. 3. Chronic recurrent hyperkalemia treated with Kayexalate and after initial treatment in the Emergency Department, I will repeat her serum electrolytes tomorrow. 4. Chronic kidney disease stage 3b apparently also causing hyperkalemia, will be followed closely and treated accordingly. 5. Late onset Alzheimer's type dementia. We will be followed and treated. 6. The patient has recent C. diff colitis treated with metronidazole, which has been continued. 7. Combined systolic, diastolic type, chronic congestive heart failure, compensated. 8. Benign essential hypertension to be treated and controlled. 9. Coronary artery disease of the [place] vessels without chest pains. CLARISSA LEGGETT MD CM:HISPHYS:PATIENT HISTORY AND PHYSICAL EXAMINATION 15 08 CLARISSA LEGGETT MD 02/19/18 2008 interface
[~2018-02-19 10:44] MED LIST changes: +CEFPROZIL250 MG PO; +FLAGYL250 MG PO; +NATURE'S BLEND F1 MG PO
[2018-02-19 11:35] LABS: BASO % 0.3 % (0.0-1.0); EOS # 0.1 10*3/uL (0.0-0.4); HEMATOCRIT 49.2 % (37.0-47.0); HEMOGLOBIN 15.4 g/dl (12.0-16.0); LYMPH # 1.8 10*3/uL (1.3-4.4); LYMPH % 13.7 % (27.0-41.0); MEAN CORPUSCULAR HGB 29.1 pg (27.0-31.0); MEAN CORPUSCULAR HGB CONC 31.3 g/dl (33.0-37.0); MEAN PLATELET VOLUME 9.7 fl (9.6-12.3); MONO # 1.2 10*3/uL (0.1-1.0); MONO % 9.2 % (3.0-9.0); NEUT # 9.7 10*3/uL (2.3-7.9); NEUT % 74.7 % (47.0-73.0); PLATELET COUNT AUTOMATED 326 10*3/uL (130-400); RED BLOOD COUNT 5.29 10*6/uL (4.10-5.10); RED CELL DISTRI WIDTH 14.6 % (0-14.5); WHITE BLOOD COUNT 12.9 10*3/uL (4.8-10.8)
[2018-02-19 11:56] LABS: ALKALINE PHOSPHATASE 110 U/L (45-117); BUN 91 mg/dl (7-24); CHLORIDE 107 mmol/L (98-107); CREATININE 1.47 mg/dL (0.55-1.02); SGOT/AST 50 IU/L (3-35); SGPT/ALT 47 U/L (12-78); SODIUM 133 mmol/L (136-145)
[2018-02-19 11:57] LABS: TROPONIN I 0.024 ng/ml (<0.045)
[2018-02-19 12:02] LABS: VALPROIC ACID (DEPAKENE) < 3.0 ug/ml (50-100)
[2018-02-19 13:37] LABS: BILIRUBIN NEGATIVE (NEGATIVE); BLOOD 2+ (NEGATIVE); CLARITY SL CLOUDY (CLEAR); COLOR YELLOW (YELLOW); GLUCOSE NEGATIVE (NEGATIVE); KETONE NEGATIVE (NEGATIVE); LEUKO ESTERASE NEGATIVE (NEGATIVE); NITRITE NEGATIVE (NEGATIVE); SPECIFIC GRAVITY 1.025 (1.005-1.030); UROBILINOGEN 0.2 E.U./dl (0.2-1.0)
[2018-02-19 13:59] LABS: EPITHELIAL CELLS 0-2; WBC 0-2 wbc/hpf (0-5)
[2018-02-19] MEDS ORDERED: DESENEX43 GM T (14:32)
[2018-02-19] MEDS ORDERED: SODIUM BICARBO650 MG PO (14:33)
[2018-02-19] MEDS ORDERED: NATURE'S BLEND F1 MG PO (14:35)
[2018-02-19] MEDS ORDERED: MORPHINE S10 MG/5 M1 PO (14:37)
[2018-02-19] MEDS ORDERED: METRONIDAZOLE250 M1 PO (14:38)
[2018-02-20] VITALS (8 sets, daily range): BP systolic 92–118; BP diastolic 54–78
[2018-02-20 07:24] LABS: BASO % 0.3 % (0.0-1.0); EOS # 0.1 10*3/uL (0.0-0.4); EOS % 0.8 % (1.0-4.0); HEMATOCRIT 44.9 % (37.0-47.0); HEMOGLOBIN 14.5 g/dl (12.0-16.0); LYMPH % 17.5 % (27.0-41.0); MEAN CELL VOLUME 90.9 fl (81.0-99.0); MEAN CORPUSCULAR HGB 29.4 pg (27.0-31.0); MEAN CORPUSCULAR HGB CONC 32.3 g/dl (33.0-37.0); MEAN PLATELET VOLUME 10.1 fl (9.6-12.3); MONO # 1.1 10*3/uL (0.1-1.0); MONO % 9.3 % (3.0-9.0); NEUT # 8.2 10*3/uL (2.3-7.9); NEUT % 71.1 % (47.0-73.0); PLATELET COUNT AUTOMATED 320 10*3/uL (130-400); RED BLOOD COUNT 4.94 10*6/uL (4.10-5.10); RED CELL DISTRI WIDTH 14.7 % (0-14.5); WHITE BLOOD COUNT 11.5 10*3/uL (4.8-10.8)
[2018-02-20 07:56] LABS: CREATININE 1.53 mg/dL (0.55-1.02); POTASSIUM 4.8 mmol/L (3.5-5.1)
[2018-02-21] VITALS: BP 102/44
[2018-02-21 08:00] VITALS: BP 96/62
[2018-02-21 08:30] LABS: CREATININE 1.65 mg/dL (0.55-1.02); POTASSIUM 4.7 mmol/L (3.5-5.1)
[2018-02-21 12:00] VITALS: BP 136/64
[2018-02-21 16:00] VITALS: BP 107/67
[2018-02-21] MEDS ORDERED: DILTIAZEM CD240 MG PO (16:24)
[2018-02-21] MEDS ORDERED: TYLENOL EXTRA500 MG PO (16:27)
== END 2018-02-21 18:01 | disposition other institution (70) | DRG 309 ==
LOC: ED 10:44 → EDHOLD 13:08 → 5E 13:24
PROVIDERS: Internal Medicine
DX: I48.2 Chronic atrial fibrillation (principal); I13.0 Hypertensive heart and chronic kidney disease with heart failure and stage 1 through stage 4 chronic kidney disease, or unspecified chronic kidney disease; E87.5 Hyperkalemia; E66.01 Morbid (severe) obesity due to excess calories; I50.42 Chronic combined systolic (congestive) and diastolic (congestive) heart failure; F02.80 Dementia in other diseases classified elsewhere, unspecified severity, without behavioral disturbance, psychotic disturbance, mood disturbance, and anxiety; G30.1 Alzheimer's disease with late onset; N18.3 Chronic kidney disease, stage 3 (moderate); Z66 Do not resuscitate; R62.7 Adult failure to thrive; I25.10 Atherosclerotic heart disease of native coronary artery without angina pectoris; F32.9 Major depressive disorder, single episode, unspecified; E78.2 Mixed hyperlipidemia; Z51.5 Encounter for palliative care; J44.9 Chronic obstructive pulmonary disease, unspecified; E78.00 Pure hypercholesterolemia, unspecified; Z96.642 Presence of left artificial hip joint; K44.9 Diaphragmatic hernia without obstruction or gangrene; F29 Unspecified psychosis not due to a substance or known physiological condition; Z87.81 Personal history of (healed) traumatic fracture; Z88.8 Allergy status to other drugs, medicaments and biological substances; Z91.041 Radiographic dye allergy status; Z79.01 Long term (current) use of anticoagulants; Z79.899 Other long term (current) drug therapy; I25.2 Old myocardial infarction; Z87.440 Personal history of urinary (tract) infections; Z90.49 Acquired absence of other specified parts of digestive tract; Z90.710 Acquired absence of both cervix and uterus; Z82.49 Family history of ischemic heart disease and other diseases of the circulatory system; Z84.89 Family history of other specified conditions; Z68.37 Body mass index [BMI] 37.0-37.9, adult

== ENCOUNTER 2018-03-01 12:30 | Inpatient (IN) | payer MEDICARE ==
[2018-03-01] VITALS (7 sets, daily range): BP systolic 40–128; BP diastolic 0–78
[~2018-03-01] VITALS: Ht 167.6 cm; Wt 111.2 kg
--- NOTE | ~2018-03-01 | PR ---
[place], [place] PROGRESS NOTE NAME[id number] UNIT #: [id number] ROOM: [facility]- DOCTOR: SRAVANTHI ROSENTHAL DO BIRTHDATE: [birth year] DOS: 03/03/2018 SUBJECTIVE: The patient remains lethargic and hypotensive. She apparently is more alert per the nursing staff and was able to take p.o., but is noncommunicative. PHYSICAL EXAMINATION: VITAL SIGNS: Blood pressure taken by myself reveals BP of 72/50, pulse is 92, respirations 18, temperature is 95.9 degrees Fahrenheit. GENERAL: An obese female, alert, nonresponsive, not following commands. HEENT: Conjunctivae pink and moist. Mucosa unable to assess. NECK: There is no JVD appreciated. LUNGS: Diminished at the bases, otherwise clear to auscultation and percussion. HEART: Regular with an S3 or rub appreciated. ABDOMEN: Soft, hypoactive, but positive bowel sounds. NEUROLOGIC: Unable to fully assess. EXTREMITIES: No clubbing, cyanosis. Anasarca is appreciated. LABORATORY DATA: Today, WBC 30.7, hemoglobin 12.4, hematocrit 37.0, platelets are 240,000 with 91 segs on differential. Sodium 129, potassium 6.3, chloride 91, CO2 24, BUN of 9, creatinine 3.45, glucose is 110, phosphorus 7.2, calcium is 7.2, albumin 0.5, corrected calcium is 10.1. Spot urine sodium is 16. Spot urine creatinine is 88.5, fractional excretion sodium is 0.5%. Urine protein creatinine ratio is 2.6. ASSESSMENT AND PLAN: 1. Acute kidney injury, oliguric in nature with only 290 mL of urine produced yesterday and with what appears to be declining urine output. Etiology of AKA is not clear. She does have prerenal indices but clearly, her is not volume deplete. She may have underlying septicemia. Her urine cultures are now positive for gram-negative rods. Blood cultures are pending. She does have proteinuria as well, noted in past and present with RBCs present in the urine, both currently as well as in the past, raising a question of an underlying GN as well. She has not undergone a serologic evaluation as of yet. 2. Hyperkalemia in the setting of septicemia and acute kidney injury. She has been refractory to conservative therapy thus far with Kayexalate but did receive an additional dose of Kayexalate with D50 and 2 units of intravenous insulin this morning. 3. Hyponatremia, presumably is a consequence of volume excess. 4. Question urosepsis. Urine cultures are positive. Blood cultures are pending, on antibiotic therapy. Left shift noted on differential. RECOMMENDATIONS: Given declining urine output, hypotension, MILLIE and hyperkalemia that has been refractory to conservative therapy, I recommend proceeding with renal replacement therapy. Reportedly, the family is in agreement with this. However, she is markedly hypotensive. She will require transfer to a tertiary care facility for potential initiation of continuous renal replacement therapy. I discussed with Dr. Feliz who will be making arrangements for the patient's transfer. We will continue to treat as able pending transfer. [place], [place] PROGRESS NOTE NAME: ERICKA TARANGO UNIT #: [id number] ROOM: [facility] DOCTOR: SRAVANTHI ROSENTHAL DO BIRTHDATE: [birth year] SRAVANTHI ROSENTHAL DO CM:YAJAIRA [id number] SRAVANTHI ROSENTHAL DO 04/12/18 0914 interface
--- NOTE | ~2018-03-01 | DS ---
[place], [place] DISCHARGE SUMMARY [id number] UNIT #: [id number] ROOM: [facility] DOCTOR: ONDINA VALERIO MD BIRTHDATE: [birth year] DOS: 03/03/2018 DIAGNOSES: 1. Acute kidney disease, possibly from acute tubular necrosis and hypotension. 2. Urinary tract infection with sepsis. HOSPITAL COURSE: This patient is very well known us, a 72-year-old was brought in acute kidney failure. Please refer to H and P for details. After admission, the patient was placed on IV fluids. Consultation with Renal was obtained. The patient's prognosis remains poor and guarded. Condition was discussed with family members and consultants and the patient's family agreed to be transferred to an ____ tertiary care center for dialysis. The patient was placed on IV Levophed and transferred to the ICU. The blood pressures were managed and then she was transferred out. ONDINA VALERIO MD CM:DISCHARG [id number] ONDINA VALERIO MD 04/07/18 1459 interface
--- NOTE | ~2018-03-01 | WRIGHTHP ---
[place], [place] PATIENT HISTORY AND PHYSICAL EXAM NAME: ERICKA TARANGO [facility] #: [id number] UNIT #: [id number] ROOM: [facility] DOCTOR: ONDINA VALERIO MD BIRTHDATE: [birth year] DOS: 03/01/2018 HISTORY OF PRESENT ILLNESS: The patient is 72 years, known to me from [facility]. The patient has been in and out of hospitals the last few months. She was admitted to the hospital on 02/21/2018 with hyperkalemia. When she was discharged at that time, her BUN was 99, creatinine was 1.6. She continued to get worse after she was discharged with worsening kidney functions, was treated with slow IV hydration, but did not improve. On Thursday, the nursing staff called that the patient was having a lot of peripheral volume overload and she was seeping. One dose of Aldactone was given on Thursday morning. On Thursday, routine blood work showed that she again had evidence of acute kidney injury and hypokalemia, so the patient was sent to the Emergency Room. PAST MEDICAL HISTORY: 1. Alzheimer's dementia, late onset. 2. Chronic kidney disease stage III. 3. History of atrial fibrillation. 4. Coronary artery disease of [place] vessels. 5. Benign hypertension. 6. History of diastolic congestive heart failure. 7. Adult failure to thrive. 8. History of Clostridium difficile colitis. MEDICATIONS: She has been on Xarelto and levothyroxine, those are the only two medications that she has been taking. SOCIAL HISTORY: Nonsmoker, does not use any alcohol. PHYSICAL EXAMINATION: GENERAL: The patient is awake, but not really alert. She does move her head. On questioning some times, she mumbles a few words, but most of the time, she is lethargic and obtunded. VITAL SIGNS: Graphic trend shows a pressure of 103/82, pulse of 76, respirations 20, temperature 97.0. LUNGS: Diminished breath sounds. HEART: Regular. ABDOMEN: Obese, soft. EXTREMITIES: Trace edema bilaterally. Also, some edema noticed in the thighs bilaterally. ASSESSMENT AND PLAN: 1. The patient who presents with acute kidney injury with a known history of chronic kidney disease. The patient is placed on slow IV hydration. Renal ultrasound is ordered. Renal consultation was obtained. Discussed with Dr. Ortiz in detail. 2. Chronic atrial fibrillation, on long-term use of anticoagulants. Surgery will be held for right now because of acute kidney injury. 3. Hypokalemia. The patient was given one dose of Aldactone before admission. [place], [place] PATIENT HISTORY AND PHYSICAL EXAM NAME: ERICKA TARANGO UNIT #: [id number] ROOM: [facility] DOCTOR: ONDINA VALERIO MD BIRTHDATE: [birth year] This has been discontinued. The patient is not on any supplements. The patient is ordered polarizing treatment as well as Kayexalate. Potassium levels have come improved from yesterday, but overall not much better, may require dialysis. 4. Alzheimer's dementia with encephalopathy. History of admission to [facility]. Overall, prognosis remains poor and guarded. ONDINA VALERIO MD CM:HISPHYS:PATIENT HISTORY AND PHYSICAL EXAMINATION [id number] ONDINA VALERIO MD 03/10/18 0819 interface
--- NOTE | ~2018-03-01 | PR ---
[place], [place] PROGRESS NOTE NAME: [id number] UNIT #: [id number] ROOM: [facility]- DOCTOR: ONDINA VALERIO MD BIRTHDATE: [birth year] DOS: SUBJECTIVE: The patient is doing poorly overall. She continues to be obtunded, lethargic, does not follow with her eyes, does not respond to any questions. OBJECTIVE: VITAL SIGNS: Blood pressure is 79/58 and drops into the 50 systolic, heart rate in the 90s, temperature 95. LUNGS: Diminished breath sounds. HEART: Regular. ABDOMEN: Obese. EXTREMITIES: Quite a lot of lymphedema. LABORATORY DATA: WBC count is 30.7. Urine culture shows heavy Gram-negative bacteria. Ultrasound of the kidneys was unremarkable. ASSESSMENT AND PLAN: 1. Acute kidney injury in a patient with chronic kidney disease, most likely from ATN and hypotension. The continued hypotension is not helping kidney function, but overall prognosis remains poor and guarded. Discussed with Dr. Briggs. Hemodialysis is most likely the only chance this patient has, but she may be too sick and hemodynamically compromised to undergo dialysis, so at this point, she may be a candidate for hospice. I did try to call her who was unavailable. 2. Urinary tract infection, 30,000 white cell count. Rocephin was started. Overall, prognosis remains poor and guarded. ONDINA VALERIO MD CM:PNTRANS [id number] ONDINA VALERIO MD 03/04/18 0509 interface
[~2018-03-01 12:30] MED LIST changes: +DESENEX43 GM T; +DILTIAZEM CD240 MG PO; +METRONIDAZOLE250 M1 PO; +MORPHINE S10 MG/5 M1 PO; +SODIUM BICARBO650 MG PO; +TYLENOL EXTRA500 MG PO
[2018-03-01] MEDS ORDERED: Synthroid,Levo25 MCG PO (15:33)
[2018-03-01] MEDS ORDERED: ALDACTONE25 MG PO (15:33)
[2018-03-01] MEDS ORDERED: CARDIZEM LA240 MG PO (15:35)
[2018-03-01] MEDS ORDERED: MORPHINE S20 MG/1 M1 PO (15:40)
[2018-03-01] MEDS ORDERED: ACETAMINOPHEN500 M4 PO (15:42)
[2018-03-02 00:16] VITALS: BP 103/79
[2018-03-02 02:02] LABS: ALBUMIN 0.8 gm/dl (3.1-4.5); CREATININE 3.32 mg/dL (0.55-1.02); PHOSPHOROUS 7.4 mg/dL (2.5-4.9)
[2018-03-02 02:05] LABS: POTASSIUM 6.3 mmol/L (3.5-5.1)
[2018-03-02 08:00] VITALS: BP 103/82
[2018-03-02 11:24] LABS: BILIRUBIN NEGATIVE (NEGATIVE); BLOOD 3+ (NEGATIVE); CLARITY CLOUDY (CLEAR); COLOR YELLOW (YELLOW); GLUCOSE NEGATIVE (NEGATIVE); KETONE NEGATIVE (NEGATIVE); LEUKO ESTERASE 3+ (NEGATIVE); NITRITE NEGATIVE (NEGATIVE); UROBILINOGEN 0.2 E.U./dl (0.2-1.0)
[2018-03-02 11:36] LABS: RBC TNTC rbc/hpf (0-2)
[2018-03-02 11:37] LABS: WBC TNTC wbc/hpf (0-5)
[2018-03-02 14:54] LABS: CREATININE 3.3 mg/dL (0.55-1.02)
[2018-03-02 15:28] LABS: POTASSIUM 6.1 mmol/L (3.5-5.1)
[2018-03-02 19:16] VITALS: BP 106/52
[2018-03-02 20:00] VITALS: BP 79/48
[2018-03-02 21:25] LABS: URINE CREATININE RANDOM 88.5 mg/dL
[2018-03-03] VITALS (20 sets, daily range): BP systolic 40–130; BP diastolic 0–76
[2018-03-03 06:32] LABS: HEMOGLOBIN 12.4 g/dl (12.0-16.0); MEAN CELL VOLUME 85.6 fl (81.0-99.0); MEAN CORPUSCULAR HGB 28.7 pg (27.0-31.0); MEAN CORPUSCULAR HGB CONC 33.5 g/dl (33.0-37.0); MEAN PLATELET VOLUME 11.3 fl (9.6-12.3); NUCLEATED RED BLOOD CELL 0.1 % (0.0-0.0); PLATELET COUNT AUTOMATED 240 10*3/uL (130-400); RED BLOOD COUNT 4.32 10*6/uL (4.10-5.10); RED CELL DISTRI WIDTH 15.2 % (0-14.5); WHITE BLOOD COUNT 30.7 10*3/uL (4.8-10.8)
[2018-03-03 06:45] LABS: ALBUMIN 0.5 gm/dl (3.1-4.5); CREATININE 3.45 mg/dL (0.55-1.02); PHOSPHOROUS 7.2 mg/dL (2.5-4.9)
[2018-03-03 07:03] LABS: POTASSIUM 6.3 mmol/L (3.5-5.1)
[2018-03-03 07:18] LABS: BURR CELLS FEW; DOHLE BODIES FEW; PLATELET SUFFICIENCY NORMAL (NORMAL); TOTAL CELLS COUNTED 100 #CELLS; TOXIC GRANULATION SLIGHT; VACUOLATION OF NEUTROPHILS MODERATE
[2018-03-03 14:09] LABS: CREATININE 3.6 mg/dL (0.55-1.02)
[2018-03-03 14:10] LABS: POTASSIUM 4.7 mmol/L (3.5-5.1)
[2018-03-03 15:06] LABS: ACT PARTIAL THROMBO TIME 37.1 SECONDS (20.8-31.5); INTERNATIONAL NORM RATIO 1.2 (2.0-3.5)
== END 2018-03-03 20:30 | disposition short-term general hospital (02) | DRG 314 ==
LOC: ED 12:30 → 5E 12:55 → EDHOLD 12:55 → 5E 13:12 → ICCU 03-03 14:40
PROVIDERS: Internal Medicine; Internal Medicine Nephrology
DX: I95.9 Hypotension, unspecified (principal); N17.0 Acute kidney failure with tubular necrosis; G93.40 Encephalopathy, unspecified; E87.2 Acidosis; I13.0 Hypertensive heart and chronic kidney disease with heart failure and stage 1 through stage 4 chronic kidney disease, or unspecified chronic kidney disease; E87.1 Hypo-osmolality and hyponatremia; I50.42 Chronic combined systolic (congestive) and diastolic (congestive) heart failure; N39.0 Urinary tract infection, site not specified; E66.01 Morbid (severe) obesity due to excess calories; I48.2 Chronic atrial fibrillation; E87.5 Hyperkalemia; F02.80 Dementia in other diseases classified elsewhere, unspecified severity, without behavioral disturbance, psychotic disturbance, mood disturbance, and anxiety; E87.6 Hypokalemia; N18.3 Chronic kidney disease, stage 3 (moderate); I25.10 Atherosclerotic heart disease of native coronary artery without angina pectoris; J44.9 Chronic obstructive pulmonary disease, unspecified; F32.9 Major depressive disorder, single episode, unspecified; E78.00 Pure hypercholesterolemia, unspecified; Z96.642 Presence of left artificial hip joint; G30.1 Alzheimer's disease with late onset; Z88.8 Allergy status to other drugs, medicaments and biological substances; Z91.041 Radiographic dye allergy status; Z79.01 Long term (current) use of anticoagulants; Z68.37 Body mass index [BMI] 37.0-37.9, adult; Z79.899 Other long term (current) drug therapy; I25.2 Old myocardial infarction; Z90.49 Acquired absence of other specified parts of digestive tract; Z90.710 Acquired absence of both cervix and uterus; Z82.49 Family history of ischemic heart disease and other diseases of the circulatory system